=== PATIENT | female | born 2005 | race Caucasian/White ===

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

== ENCOUNTER 2023-03-21 07:54 | Observation (INO) | payer BC, SELFPAY ==
[2023-03-21] VITALS (18 sets, daily range): BP systolic 91–119; BP diastolic 49–79; PULSE 91–128; RESP 16–20; TEMP 36.7–37.8; O2SAT 95–100; BMI 20.9; BMI 21.0
--- NOTE | 2023-03-21 08:05 | US_ITS ---
FINAL REPORT TECHNIQUE: Multiple transverse and longitudinal images CLINICAL HISTORY: Gallbladder RUQ pain-- vomiting FINDINGS: The gallbladder shows no wall thickening, distention or stone disease. No biliary ductal dilatation is appreciated. No fluid collections are seen. Limited portions of the right liver are unremarkable. Limited portions of the right kidney are unremarkable. IMPRESSION: 1. No evidence of cholelithiasis 2. No evidence of biliary obstruction Reviewed, Interpreted and Dictated by Madelyn Isabel MD Transcribed by Cathie Encarnacion Authenticated and [facility]
--- NOTE | 2023-03-21 08:10 | PC.NURSE ---
pt to US via wheelchair
--- NOTE | 2023-03-21 08:10 | PC.NURSE ---
Sarai RT is aware of the US
--- NOTE | 2023-03-21 08:29 | PC.NURSE ---
pt to US via wheelchair
[2023-03-21 08:31] LABS: Basophils % 0.1 % (0.1-2.0); Eosinophils # 0.3 K/mm3 (0.0-0.4); Eosinophils % 1.9 % (0.1-12.0); Hematocrit 44.1 % (37.0-47.0); Hemoglobin 14.3 g/dL (12.2-16.2); Lymphocytes # 0.6 K/mm3 (0.7-4.5); Lymphocytes % 3.8 % (10-50); Mean Corpuscular HGB Conc 32.3 g/dL (31.8-35.4); Mean Corpuscular Volume 86.7 fl (81-99); Mean Platelet Volume 7.4 fl (7.4-10.4); Monocytes # 0.4 K/mm3 (0.1-1.0); Monocytes % 2.5 % (1.7-9.3); Neutrophils # 14.6 K/mm3 (1.8-7.8); Neutrophils % 91.7 % (37.0-80.0); Platelet Count 355 K/mm3 (142-424); Red Blood Count 5.09 M/mm3 (4.20-5.40); White Blood Count 15.9 K/mm3 (4.5-13.0)
[2023-03-21 08:32] LABS: MANUAL DIFFERENTIAL MANUAL DIFFERENTIAL (MANUAL DIFF)
--- NOTE | 2023-03-21 08:34 | HMH.EDGENADL ---
Discharge Plan Disposition Patient Disposition: Home, Self-Care Chief Complaint: Abdominal Pain Prescriptions Prescriptions: New ondansetron 4 mg tablet,disintegrating 4 mg PO Q8H PRN (Reason: Nausea) Qty: 15 0RF No Action meloxicam [Mobic] 7.5 mg tablet 7.5 mg PO DAILY Qty: 30 2RF amoxicillin 500 MG capsule 500 mg PO TID Qty: 30 0RF methylprednisolone 4 MG tablet 4 mg PO DIRECTED Qty: 21 0RF Rx Instructions: Take as directed on package instructions fluticasone propionate 120 SPR/BOT bottle 1 spr NS DAILY Qty: 1 0RF Rx Instructions: each nostril daily cyclobenzaprine 10 MG tablet 5 mg PO DAILY PRN (Reason: Muscle Spasm) 5 Days Qty: 5 0RF Rx Instructions: at bedtime prednisone 5 MG tablets,dose pack 5 mg PO UD DOSE PK 6 Days Qty: 1 0RF Referrals Follow up/Referrals: Jhony Rosa MD [Primary Care Provider] - See instructions Activity Restrictions/Add. Instructions Additional Instructions/Restrictions: Return immediately within 8 hours for worsening pain vomiting or any other concerns. Follow-up with general surgery for evaluation of gallbladder. Instructions Patient Instructions: DI for Acute Abdominal Pain Discharge ED Provider: Goldy Do General Adult HPI General Chief complaint: Abdominal Pain Stated complaint: Upper mid RT abd pain Time Seen by Provider: 03/21/23 08:00 Mode of Arrival: Wheelchair Source of Information: Patient and Parent(s) Limitations: No Limitations Description of Symptoms (Recalled from ER Triage Doc. by RN): pt comes in with mother, c/o right upper abdominal pain. began yesterday after lunch. pt reports vomitting began last night. mother states pt came into her room this am, and was c/o vomtting and abd pain. History of Present Illness HPI narrative: 17-year-old female presents with right upper quadrant pain for 1 day. She says the pain began yesterday at noon after eating canes it was not that severe but then in the morning she began having severe right upper quadrant pain and vomiting. No fever or chills. No diarrhea no radiation of the abdominal pain. No chest pain or shortness of breath. No dysuria hematuria vaginal bleeding or discharge. Pain is constant. Related Data Previous Rx's Medication Instructions Recorded meloxicam 7.5 mg tablet (Mobic) 7.5 mg PO DAILY pain #30 tabs 08/05/20 cyclobenzaprine 10 mg tablet 5 mg PO DAILY PRN Muscle Spasm 5 12/19/20 days #5 tabs prednisone 5 mg tablets in a dose 5 mg PO UD DOSE PK 6 days ##1 12/19/20 pack amoxicillin 500 mg capsule 500 mg PO TID #30 caps 03/26/21 fluticasone propionate 50 1 spr NS DAILY ##1 03/26/21 mcg/actuation nasal spray,suspension methylprednisolone 4 mg tablet 4 mg PO DIRECTED #21 tabs 03/26/21 ondansetron 4 mg disintegrating 4 mg PO Q8H PRN Nausea #15 tabs 03/21/23 tablet Allergies Allergy/AdvReac Type Severity Reaction Status Date / Time No Known Allergies Allergy Verified 03/26/21 15:30 [facility] Disclaimer: The information contained in this section may have been updated after the patient was seen, as this information can be updated by other users. Medical History (Updated 10/09/22 @ 21:27 by James Garcia MD) Anxiety Social History Smoking Status: Never smoker second hand exposure: No alcohol intake: never substance use type: denies use current occupational status: student Travel in the last 8 weeks: None household members: family current occupational exposures/hazards: No caffeine: No ROS Obtained: Yes All systems reviewed & no additional complaints except as documented Constitutional Constitutional: Denies fatigue Eyes Eyes: Denies dry eyes ENT Ears, Nose, Mouth, and Throat: Denies dry mouth Cardiovascular Cardiovascular: Denies diaphoresis and Denies dyspnea Respiratory Respiratory: Denies dyspnea Gastrointestinal Gastrointestingal: Denies coffee ground emesis Genitourin
[2023-03-21 08:38] LABS: Alanine Aminotransferase 17 U/L (12-78); Albumin Level 4.5 g/dl (3.5-5.0); Albumin/Globulin Ratio 1.4 (1.1-1.8); Alkaline Phosphatase 79 U/L (38-126); Anion Gap 16.6 mEq/L (5-15); Aspartate Amino Transferase 23 U/L (14-36); Bilirubin,Total 1.1 mg/dl (0.2-1.3); Blood Urea Nitrogen 9 mg/dl (7-17); Calcium 9.2 mg/dl (8.4-10.2); Carbon Dioxide 26 mmol/L (22.0-30.0); Chloride 99 mmol/L (98-107); Creatinine Clearance Estimated 117 mL/min (50-200); Estimated Glomerular Filt Rate 108 ml/min (>60); GFR (African American) 130 ML/MIN (>60); Globulin 3.2 g/dL (1.3-3.2); Glucose 100 mg/dl (74-100); Lipase 85 U/L (23-300); Potassium 3.6 mmoL/L (3.5-5.1); Sodium 138 mmol/L (136-145); Total Protein,Serum 7.7 g/dl (6.3-8.2)
--- NOTE | 2023-03-21 08:49 | PC.NURSE ---
pt back to room from
--- NOTE | 2023-03-21 08:51 | CT_ITS ---
FINAL REPORT TECHNIQUE: Oral and IV contrast enhanced exam CLINICAL HISTORY: RLQ pain COMPARISON: 11/12/2018 FINDINGS: Abdomen: No acute density is seen within the lung bases. The gallbladder is unremarkable. Solid abdominal organs are unremarkable. No bowel obstruction is present. There is no free air. No fluid collection is seen. There is no adenopathy. Pelvis: The appendix is normal. No bowel wall thickening is present. There is no free fluid. There is a benign cyst in the right ovary measuring 20 mm. Left ovary and uterus are unremarkable. IMPRESSION: No acute findings. Benign right ovarian cyst. Reviewed, Interpreted and Dictated by Madelyn Isabel MD Transcribed by Alyssa Walker Authenticated and [facility]
[2023-03-21 08:55] LABS: Lymphocytes % 13 % (10-50); Monocytes % 2 % (2-9); Neutrophils % 85 % (42-76); Platelet Estimate Normal; RBC Morphology Normal; Total Cells Counted 100
[2023-03-21 09:06] LABS: HCG Qualitative, Serum Negative (Negative)
--- NOTE | 2023-03-21 09:30 | PC.NURSE ---
Rounded on patient; pt lying on ED stretcher watching a show on her phone. Mother at BS. Call light within reach. Pt aware that she will be having a CT scan shortly. no other needs
--- NOTE | 2023-03-21 10:17 | PC.NURSE ---
rounded on pt at this time, pt requested water,checked with ER MD stated to wait until Ct is resulted. Pt notified of needing to wait until CT is resulted pt verbalized understanding. Family at BS, call light in reach.
--- NOTE | 2023-03-21 11:11 | PC.NURSE ---
contacted rad at this time to check on status of ct results, states will send a ct down
--- NOTE | 2023-03-21 11:24 | PC.NURSE ---
NUPUR WELLS updated pt POC
--- NOTE | 2023-03-21 11:32 | PC.NURSE ---
checked on pt at this time, pt reports tolerating ice water okay, pt states no needs at this time. call light in reach at this time
--- NOTE | 2023-03-21 12:30 | PC.NURSE ---
pt assisted to bathroom. pt has been sleeping in bed, attempting to move pt to increase blood pressure.
--- NOTE | 2023-03-21 12:43 | PC.NURSE ---
Follow up to see Dr. Childress on March [address] Do is aware
--- NOTE | 2023-03-21 12:53 | PC.NURSE ---
Dr. Do speaking with Dr. Selby at this time
--- NOTE | 2023-03-21 13:05 | PC.NURSE ---
pts mother come out to nurses station, requesting to speak with nurse. mother states that pt does not want to go home due to nausea and vomiting.
--- NOTE | 2023-03-21 13:09 | US_ITS ---
FINAL REPORT CLINICAL HISTORY: ovarian torsion COMPARISON: None FINDINGS: PELVIC ULTRASOUND Transvaginal pelvic exam: Uterus is unremarkable. The right ovary is mildly enlarged with estimated volume of 17.1 mL, partially related to complex cyst measuring up to 2 cm. Left ovary is unremarkable. Flow demonstrated to bilateral ovaries on Doppler imaging. IMPRESSION: No sonographic evidence of torsion. Mild enlargement right ovary, likely related to complex benign functional cyst. Reviewed, Interpreted and Dictated by Madelyn Isabel MD Transcribed by Alyssa Walker Authenticated and [facility]
--- NOTE | 2023-03-21 13:09 | PC.NURSE ---
waiting international coordinator back from Dr. Rosa
[2023-03-21 13:12] LABS: Microscopic, Urine URINE MICROSCOPIC (MICROSCOPIC)
[2023-03-21 13:14] LABS: Coronavirus 19, PCR Not Detected (NotDetected); Influenza A, PCR Not Detected (NotDetected); Influenza B, PCR Not Detected (NotDetected)
[2023-03-21 13:14] LABS: Appearance,Urine CLEAR (Clear); Bilirubin,Urine Negative (Negative); Blood, Urine Negative (Negative); Color,Urine YELLOW (Yellow); Glucose,Urine (UA) Negative (Negative); Ketones,Urine Negative (Negative); Leukocyte Esterase,Urine Negative (Negative); Nitrate,Urine Negative (Negative); PH,Urine 8.5 (5.0-8.5); Protein,Urine TRACE (Negative)
--- NOTE | 2023-03-21 13:14 | PC.NURSE ---
NUPUR WELLS speaking with Dr. Rosa
--- NOTE | 2023-03-21 13:36 | PC.NURSE ---
call made to care management for bed assignment
[2023-03-21 13:47] LABS: Bacteria,Urine 2+ /lpf; RBC,Urine Occasional #/hpf (0-3)
--- NOTE | 2023-03-21 14:00 | PC.NURSE ---
waiting delinquency prevention officer back from second floor to call report on pt.
--- NOTE | 2023-03-21 14:08 | PC.NURSE ---
bernard called to pedro on second floor
--- NOTE | 2023-03-21 15:26 | P.CONS_ITS ---
History of Present Illness *Admission Date: 03/21/23 *Reason for visit:: Abdominal pain and nausea *History of present illness: This is a 17-year-old female seen in consultation from her primary care provider after evaluation in the emergency department for right-sided abdominal pain and nausea/vomiting. Please see HPI forwarded from emergency department evaluation below. She states that she feels a little bit better right now . Forwarded from emergency department evaluation: General Adult HPI General Chief complaint: Abdominal Pain Stated complaint: Upper mid RT abd pain Time Seen by Provider: 03/21/23 08:00 Mode of Arrival: Wheelchair Source of Information: Patient and Parent(s) Limitations: No Limitations Description of Symptoms (Recalled from ER Triage Doc. by RN): pt comes in with mother, c/o right upper abdominal pain. began yesterday after lunch. pt reports vomitting began last night. mother states pt came into her room this am, and was c/o vomtting and abd pain. History of Present Illness HPI narrative: 17-year-old female presents with right upper quadrant pain for 1 day.? She says the pain began yesterday at noon after eating canes it was not that severe but then in the morning she began having severe right upper quadrant pain and vomiting.? No fever or chills.? No diarrhea no radiation of the abdominal pain.? No chest pain or shortness of breath.? No dysuria hematuria vaginal bleeding or discharge.? Pain is constant. CT of abdomen/pelvis with oral and IV contrast: FINDINGS: Abdomen: No acute density is seen within the lung bases. The gallbladder is unremarkable. Solid abdominal organs are unremarkable.? No bowel obstruction is present. There is no free air. No fluid collection is seen.? There is no adenopathy. Pelvis: ? The appendix is normal.? No bowel wall thickening is present. There is no free fluid.? There is a benign cyst in the right ovary measuring 20 mm.? Left ovary [place] are unremarkable. IMPRESSION: No acute findings.? ? Benign right ovarian cyst. Gallbladder ultrasound: FINDINGS: The gallbladder shows no wall thickening, distention or stone disease.? No biliary ductal dilatation is appreciated.? No fluidcollections are seen.? Limited portions of the right liver are unremarkable.? Limited portions of the right kidney are unremarkable. IMPRESSION: 1.? No evidence of cholelithiasis? 2.? No evidence of biliary obstruction Transvaginal ultrasound: FINDINGS: PELVIC ULTRASOUND? Transvaginal pelvic exam: Uterus is unremarkable.? The right ovary is mildly enlarged with estimated volume of 17.1 mL, partially related to complex cyst measuring up to 2 cm.? Left ovary is unremarkable.? Flow demonstrated to bilateral ovaries on Doppler imaging. IMPRESSION: No sonographic evidence of torsion.? ? Mild enlargement right ovary, likely related to complex benign functional cyst. PFSH PFSH Disclaimer: The information contained in this section may have been updated after the patient was seen, as this information can be updated by other users. Medical History (Updated 03/21/23 @ 15:40 by iSd Selby MD) Anxiety Social History (Updated 03/21/23 @ 14:33 by Inessa Lara RN) Smoking Status: Never smoker second hand exposure: No alcohol i
--- NOTE | 2023-03-21 17:39 | PC.NURSE ---
Pt A&O x4. She is resting in bed. Has c/o discomfort to (R) abdomen. Medicated per jan. MD Rosa rounded at bedside. Boyfriend and mother is in room. Call light within reach.
--- NOTE | 2023-03-21 21:10 | EXP.HP ---
History of Present Illness *Admission Date: 03/21/23 *Reason for visit:: Abd pain and nausea *History of present illness: This is a 17-year-old female seen in consultation from her primary care provider after evaluation in the emergency department for right-sided abdominal pain and nausea/vomiting. Please see HPI forwarded from emergency department evaluation below. She states that she feels a little bit better right now . Forwarded from emergency department evaluation: General Adult HPI General Chief complaint: Abdominal Pain Stated complaint: Upper mid RT abd pain Time Seen by Provider: 03/21/23 08:00 Mode of Arrival: Wheelchair Source of Information: Patient and Parent(s) Limitations: No Limitations Description of Symptoms (Recalled from ER Triage Doc. by RN): pt comes in with mother, c/o right upper abdominal pain. began yesterday after lunch. pt reports vomitting began last night. mother states pt came into her room this am, and was c/o vomtting and abd pain. History of Present Illness HPI narrative: 17-year-old female presents with right upper quadrant pain for 1 day.? She says the pain began yesterday at noon after eating canes it was not that severe but then in the morning she began having severe right upper quadrant pain and vomiting.? No fever or chills.? No diarrhea no radiation of the abdominal pain.? No chest pain or shortness of breath.? No dysuria hematuria vaginal bleeding or discharge.? Pain is constant. CT of abdomen/pelvis with oral and IV contrast: FINDINGS: Abdomen: No acute density is seen within the lung bases. The gallbladder is unremarkable. Solid abdominal organs are unremarkable.? No bowel obstruction is present. There is no free air. No fluid collection is seen.? There is no adenopathy. Pelvis: ? The appendix is normal.? No bowel wall thickening is present. There is no free fluid.? There is a benign cyst in the right ovary measuring 20 mm.? Left ovary [place] are unremarkable. IMPRESSION: No acute findings.? ? Benign right ovarian cyst. Gallbladder ultrasound: FINDINGS: The gallbladder shows no wall thickening, distention or stone disease.? No biliary ductal dilatation is appreciated.? No fluidcollections are seen.? Limited portions of the right liver are unremarkable.? Limited portions of the right kidney are unremarkable. IMPRESSION: 1.? No evidence of cholelithiasis? 2.? No evidence of biliary obstruction Transvaginal ultrasound: FINDINGS: PELVIC ULTRASOUND? Transvaginal pelvic exam: Uterus is unremarkable.? The right ovary is mildly enlarged with estimated volume of 17.1 mL, partially related to complex cyst measuring up to 2 cm.? Left ovary is unremarkable.? Flow demonstrated to bilateral ovaries on Doppler imaging. IMPRESSION: No sonographic evidence of torsion.? ? Mild enlargement right ovary, likely related to complex benign functional cyst. PFSH PFSH Disclaimer: The information contained in this section may have been updated after the patient was seen, as this information can be updated by other users. Medical History (Updated 03/21/23 @ 15:40 by Sid Selby MD) Anxiety Social History (Updated 03/21/23 @ 14:33 by Inessa Lara RN) Smoking Status: Never smoker second hand exposure: No alcohol intake: never substance use type: denies use current occupational status: student Travel in the last 8 weeks: None household members: family current occupational exposures/hazards: No caffeine: No Review of Systems Review of Systems Review of systems:: pertinent systems reviewed and negative unless documented below *Neurologic Neurolog
[2023-03-22 04:00] VITALS: BP 94/55; PULSE 79; RESP 16; TEMP 36.6; O2SAT 98; BMI 21.4
--- NOTE | 2023-03-22 04:10 | PC.NURSE ---
NO ACUTE CHANGES SINCE PREVIOUS ASSESSMENT. PT HAS RESTED WELL. NO C/O PAIN BUT HAS BEEN MEDICATED WITH SCHEDULED TORDOL THIS SHIFT. LUNGS CLEAR. VSS. CALL BOSS WITHIN REACH.
[2023-03-22 06:27] LABS: Basophils % 0.2 % (0.1-2.0); Eosinophils # 0.1 K/mm3 (0.0-0.4); Eosinophils % 0.9 % (0.1-12.0); Hematocrit 38.1 % (37.0-47.0); Hemoglobin 12.9 g/dL (12.2-16.2); Lymphocytes # 1.1 K/mm3 (0.7-4.5); Lymphocytes % 16.3 % (10-50); Mean Corpuscular HGB Conc 33.8 g/dL (31.8-35.4); Mean Corpuscular Hemoglobin 28.9 pg (27.0-31.2); Mean Corpuscular Volume 85.6 fl (81-99); Mean Platelet Volume 7.6 fl (7.4-10.4); Monocytes # 0.4 K/mm3 (0.1-1.0); Monocytes % 6.3 % (1.7-9.3); Neutrophils % 76.2 % (37.0-80.0); Platelet Count 292 K/mm3 (142-424); Red Blood Count 4.46 M/mm3 (4.20-5.40); White Blood Count 6.6 K/mm3 (4.5-13.0)
[2023-03-22 06:36] LABS: Alanine Aminotransferase 14 U/L (12-78); Albumin Level 3.4 g/dl (3.5-5.0); Albumin/Globulin Ratio 1.4 (1.1-1.8); Alkaline Phosphatase 56 U/L (38-126); Amylase 52 U/L (30-110); Anion Gap 15.3 mEq/L (5-15); Aspartate Amino Transferase 19 U/L (14-36); Bilirubin,Total 0.7 mg/dl (0.2-1.3); Blood Urea Nitrogen 6 mg/dl (7-17); Calcium 8.5 mg/dl (8.4-10.2); Carbon Dioxide 26 mmol/L (22.0-30.0); Chloride 99 mmol/L (98-107); Chol/HDL Ratio 2.8 (1-3.5); Cholesterol 86 mg/dl (140-200); Creatinine Clearance Estimated 120 mL/min (50-200); Estimated Glomerular Filt Rate 108 ml/min (>60); GFR (African American) 130 ML/MIN (>60); Globulin 2.5 g/dL (1.3-3.2); Glucose 79 mg/dl (74-100); HDL Cholesterol 31 mg/dl (40-60); Potassium 3.3 mmoL/L (3.5-5.1); Sodium 137 mmol/L (136-145); Total Protein,Serum 5.9 g/dl (6.3-8.2); Triglycerides 46 mg/dl (30-150); VLDL Cholesterol 9 mg/dL (0-40)
[2023-03-22 06:47] LABS: Direct LDL Cholesterol 41.57 mg/dL (100-129)
--- NOTE | 2023-03-22 06:50 | EXP.SURG.PN ---
Subjective Patient reports: feels better Narrative: She states that she feels okay right now . She is hopeful that she will be discharged this morning. Exam Data for Last 24 hours Vital signs and Labs for Last 24 Hours: Temp Pulse Resp BP Pulse Ox 97.9 F 79 16 94/55 L 98 03/22/23 04:00 03/22/23 04:00 03/22/23 04:00 03/22/23 04:00 03/22/23 04:00 Laboratory Results - last 24 hr 03/21/23 08:00: Urine Color Yellow, Urine Appearance Clear, Urine pH 8.5, Ur Specific [place] 1.020, Urine Protein Trace, Urine Glucose (UA) Negative, Urine Ketones Negative, Urine Blood Negative, Urine Nitrate Negative, Urine Bilirubin Negative, Urine Urobilinogen 1.0, Ur Leukocyte Esterase Negative, Urine RBC Occasional, Urine WBC 5-10, Ur Squamous Epith Cells 5-10, Urine Bacteria 2+ 03/21/23 08:15: WBC 15.9 H, RBC 5.09, Hgb 14.3, Hct 44.1, MCV 86.7, MCH 28.0, MCHC 32.3, RDW 13.0, Plt Count 355, MPV 7.4, Neut % (Auto) 91.7 H, Lymph % (Auto) 3.8 L, Levy % (Auto) 2.5, Eos % (Auto) 1.9, Baso % (Auto) 0.1, Neut # (Auto) 14.6 H, Lymph # (Auto) 0.6 L, Levy # (Auto) 0.4, Eos # (Auto) 0.3, Baso # (Auto) 0.0, Total Counted 100, Neutrophils % (Manual) 85 H, Lymphocytes % (Manual) 13, Monocytes % (Manual) 2, Platelet Estimate Normal, RBC Morphology Normal 03/21/23 08:15: Sodium 138, Potassium 3.6, Chloride 99, Carbon Dioxide 26, Anion Gap 16.6 H, BUN 9, Creatinine 0.70, Estimated Creat Clear 117, Estimated GFR 108, Est GFR ( Amer) 130, Glucose 100, Calcium 9.2, Total Bilirubin 1.1, AST 23, ALT 17, Alkaline Phosphatase 79, Total Protein 7.7, Albumin 4.5, Globulin 3.2, Albumin/Globulin Ratio 1.4, Lipase 85 03/21/23 08:15: Serum HCG, Qual Negative 03/21/23 13:10: SARS-CoV-2 (PCR) Not detected, Influenza A Untype (PCR) Not detected, Influenza Type B (PCR) Not detected 03/22/23 05:52: WBC 6.6 D, RBC 4.46, Hgb 12.9, Hct 38.1, MCV 85.6, MCH 28.9, MCHC 33.8, RDW 13.0, Plt Count 292, MPV 7.6, Neut % (Auto) 76.2, Lymph % (Auto) 16.3, Levy % (Auto) 6.3, Eos % (Auto) 0.9, Baso % (Auto) 0.2, Neut # (Auto) 5.0, Lymph # (Auto) 1.1, Levy # (Auto) 0.4, Eos # (Auto) 0.1, Baso # (Auto) 0.0 03/22/23 05:52: Sodium 137, Potassium 3.3 L, Chloride 99, Carbon Dioxide 26, Anion Gap 15.3 H, BUN 6 L D, Creatinine 0.70, Estimated Creat Clear 120, Estimated GFR 108, Est GFR ( Amer) 130, Glucose 79 D, Calcium 8.5, Total Bilirubin 0.7, AST 19, ALT 14, Alkaline Phosphatase 56, Total Protein 5.9 L, Albumin 3.4 L D, Globulin 2.5, Albumin/Globulin Ratio 1.4, Triglycerides 46, Cholesterol 86 L, LDL Cholesterol Direct 41.57 L, VLDL Cholesterol 9, HDL Cholesterol 31 L, Cholesterol/HDL Ratio 2.8, Amylase 52 I & O for Last 24 hours: Intake & Output 03/19/23 03/20/23 03/21/23 03/22/23 11:59 11:59 11:59 11:59 Intake Total 651 / 651 Output Total 300 / 300 Balance 351 / 351 Weight 126 lb 129 lb 2 oz Constitutional Constitutional: no acute distress *Routine Respiratory Exam Respiratory: Absent respiratory distress *Routine Cardiovascular Exam Cardiovascular: Present RRR *Routine Abdominal Exam Comments: Deferred to allow patient to rest. Repeat exam later this AM. Progress Note: A&P Assessment and plan (1) Right lateral abdominal pain: Status: Acute Assessment and plan: Currently improved per patient report. If repeat abdominal exam later this AM improved...she will likely be stable for discharge home with close outpatient follow-up. (2) Nausea and vomiting: Status: Acute (3) Right ovarian cyst: Status: Acute (4) Leukocytosis: Status: Resolved
[2023-03-22 07:10] LABS: Lipase 52 U/L (23-300)
[2023-03-22 08:00] VITALS: BP 99/67; PULSE 77; RESP 18; TEMP 36.9; O2SAT 100
--- NOTE | 2023-03-22 08:00 | EXP.DC.SUM ---
General Admission date:: 03/21/23 Discharge date: 03/22/23 HPI HPI HPI: This is a 17-year-old female seen in consultation from her primary care provider after evaluation in the emergency department for right-sided abdominal pain and nausea/vomiting. Please see HPI forwarded from emergency department evaluation below. She states that she feels a little bit better right now . Forwarded from emergency department evaluation: General Adult HPI General Chief complaint: Abdominal Pain Stated complaint: Upper mid RT abd pain Time Seen by Provider: 03/21/23 08:00 Mode of Arrival: Wheelchair Source of Information: Patient and Parent(s) Limitations: No Limitations Description of Symptoms (Recalled from ER Triage Doc. by RN): pt comes in with mother, c/o right upper abdominal pain. began yesterday after lunch. pt reports vomitting began last night. mother states pt came into her room this am, and was c/o vomtting and abd pain. History of Present Illness HPI narrative: 17-year-old female presents with right upper quadrant pain for 1 day.? She says the pain began yesterday at noon after eating canes it was not that severe but then in the morning she began having severe right upper quadrant pain and vomiting.? No fever or chills.? No diarrhea no radiation of the abdominal pain.? No chest pain or shortness of breath.? No dysuria hematuria vaginal bleeding or discharge.? Pain is constant. CT of abdomen/pelvis with oral and IV contrast: FINDINGS: Abdomen: No acute density is seen within the lung bases. The gallbladder is unremarkable. Solid abdominal organs are unremarkable.? No bowel obstruction is present. There is no free air. No fluid collection is seen.? There is no adenopathy. Pelvis: ? The appendix is normal.? No bowel wall thickening is present. There is no free fluid.? There is a benign cyst in the right ovary measuring 20 mm.? Left ovary [place] are unremarkable. IMPRESSION: No acute findings.? ? Benign right ovarian cyst. Gallbladder ultrasound: FINDINGS: The gallbladder shows no wall thickening, distention or stone disease.? No biliary ductal dilatation is appreciated.? No fluidcollections are seen.? Limited portions of the right liver are unremarkable.? Limited portions of the right kidney are unremarkable. IMPRESSION: 1.? No evidence of cholelithiasis? 2.? No evidence of biliary obstruction Transvaginal ultrasound: FINDINGS: PELVIC ULTRASOUND? Transvaginal pelvic exam: Uterus is unremarkable.? The right ovary is mildly enlarged with estimated volume of 17.1 mL, partially related to complex cyst measuring up to 2 cm.? Left ovary is unremarkable.? Flow demonstrated to bilateral ovaries on Doppler imaging. IMPRESSION: No sonographic evidence of torsion.? ? Mild enlargement right ovary, likely related to complex benign functional cyst. Hospital Course Hospital Course Hospital Course: Patient did well after being admitted. Normal bowel movements, no vomiting. This morning had a small amount of hypokalemia, able to tolerate p.o. replacement and clear liquids. Plan will be to discharge patient with clear liquids advance to as tolerated diet with avoiding milk. Differential diagnosis includes viral gastroenteritis, possibly pain from her cyst but I believe we have effectively ruled out biliary colic. Plan will be to come back and see us in the office in the next 5 to 7 days. Advance diet slowly. Exam Data for Last 24 hours Vital signs and Labs for Last 24 Hours: Temp Pulse Resp BP Pulse Ox 97.9 F 79 16 94/55 L 98 03/22/23 04:00 03/22/23 04:00 03/22/23 04:00 03/22/23 04:00 03/22/23 04:0
--- NOTE | 2023-03-23 13:38 | CARE MANAGER ---
Contacted patient's mother. She states she is doing well and denies any questions or concerns. She is aware of follow up appointments. JILL Reynaga
== END 2023-03-22 09:49 | disposition home or self-care (01) ==
LOC: ER 13:03 → 2ND 13:48
PROVIDERS: Surgery; Admitting Provider Internal Medicine Adolescent Medicine; Emergency Provider Emergency Medicine; PCP Internal Medicine Adolescent Medicine; Visit Provider Internal Medicine Adolescent Medicine
DX: N83.201 Unspecified ovarian cyst, right side (principal); R11.2 Nausea with vomiting, unspecified; R10.30 Lower abdominal pain, unspecified
CPT/HCPCS: 36415; 74177; 76705; 76830; 80053; 80061; 81001; 82150; 83690; 84703; 85007; 85025; 87086; 99285; C9803; G0378; J2405; Q9967; U0003; U0005

== ENCOUNTER → 2023-04-04 10:09 | Outpatient (CLI) | payer BC, SELFPAY ==
--- NOTE | 2023-04-04 10:09 | NM_ITS ---
FINAL REPORT CLINICAL HISTORY: Abdominal Pain 10:30 am 8.22[facility]ci tc choletec 1.1 mcg of cck injected into lt ant neg u/s for stones 03/21/23 pain with cck FINDINGS: Sequential anterior projection images of the abdomen were obtained after the intravenous injection of 8.22 mCi technetium 99m Choletec. There is normal uptake of radiotracer by the liver. The bile ducts are visualized by 5 minutes. Gallbladder activity is seen by 5 minutes. Bowel activity is noted by 5 minutes. After 1 hour, 1.1 ?g of CCK was injected intravenously for calculation of gallbladder ejection fraction. The gallbladder ejection fraction is 28 %, which is slightly lower than normal. IMPRESSION: Gallbladder ejection fraction is 28% which is slightly lower than normal. This is a nonspecific finding but can be seen with chronic cholecystitis. Reviewed, Interpreted and Dictated by Angelito Rice III, MD Transcribed by Cathie Encarnacion Authenticated and [facility]
== END ==
PROVIDERS: PCP Internal Medicine Adolescent Medicine; Visit Provider Surgery
DX: R10.9 Unspecified abdominal pain (principal)
CPT/HCPCS: 78227; A9537; J2805

== ENCOUNTER 2023-05-08 22:57 | Emergency (ER) | payer BC, SELFPAY ==
[2023-05-08 22:58] VITALS: BP 149/88; PULSE 90; RESP 16; TEMP 37; O2SAT 99; BMI 20.3
[2023-05-08 23:02] VITALS: BP 149/88; PULSE 80; RESP 20; O2SAT 100
--- NOTE | 2023-05-08 23:09 | CT_ITS ---
PROCEDURE INFORMATION: Exam: CT Abdomen And Pelvis With Contrast Exam date and time: 05/08/2023 11:48 PM Age: 17 years old Clinical indication: Abdominal pain; Patient HX: C/O lower abd pain after eating tonight; Additional info: Rlq pain. Scheduled for cholecystectomy May 24, states HX of right sided ovarian cyst. TECHNIQUE: Imaging protocol: Computed tomography of the abdomen and pelvis with contrast. Radiation optimization: All CT scans at this facility use at least one of these dose optimization techniques: automated exposure control; mA and/or kV adjustment per patient size (includes targeted exams where dose is matched to clinical indication); or iterative reconstruction. Contrast material: ISOVUE; Contrast volume: 75 ml; Contrast route: IV; REPORTING DATA: Count of CT and Cardiac NM exams in prior 12 months: This patient has received 3 known CTs and 0 known cardiac nuclear medicine studies in the 12 months prior to the current study. COMPARISON: CT ABDOMEN PELVIS W CON 03/21/2023 9:53 AM FINDINGS: Lungs: RLL calcified granuloma. Liver: Unremarkable. Gallbladder and bile ducts: No calcified stones. No ductal dilation. Pancreas: Unremarkable. No ductal dilation. Spleen: Heterogeneity of parenchyma, likely related to phase of enhancement. Few calcifications. Adrenal glands: No mass. Kidneys and ureters: Unremarkable. No significant hydronephrosis. Stomach and bowel: No definite mural thickening. No obstruction. Appendix: Normal caliber. No inflammation. Intraperitoneal space: Trace free fluid within pelvis. No free air. Vasculature: Unremarkable. No aneurysm. Lymph nodes: No pathologically enlarged lymph nodes. Urinary bladder: Unremarkable. Reproductive: Unremarkable as visualized. Bones/joints: No acute fracture. Soft tissues: Unremarkable. IMPRESSION: No definite acute intraabdominal abnormality.
[2023-05-08 23:16] LABS: Microscopic, Urine URINE MICROSCOPIC (MICROSCOPIC)
[2023-05-08 23:19] LABS: Basophils % 0.5 % (0.1-2.0); Eosinophils # 0.3 K/mm3 (0.0-0.4); Eosinophils % 3.5 % (0.1-12.0); Hematocrit 42.1 % (37.0-47.0); Hemoglobin 13.7 g/dL (12.2-16.2); Lymphocytes # 3.6 K/mm3 (0.7-4.5); Lymphocytes % 40.8 % (10-50); Mean Corpuscular HGB Conc 32.4 g/dL (31.8-35.4); Mean Corpuscular Hemoglobin 28.1 pg (27.0-31.2); Mean Corpuscular Volume 86.8 fl (81-99); Mean Platelet Volume 7.4 fl (7.4-10.4); Monocytes # 0.5 K/mm3 (0.1-1.0); Monocytes % 5.7 % (1.7-9.3); Neutrophils # 4.3 K/mm3 (1.8-7.8); Neutrophils % 49.6 % (37.0-80.0); Platelet Count 328 K/mm3 (142-424); Red Blood Count 4.85 M/mm3 (4.20-5.40); Red Cell Distribution Width 13.4 % (11.5-17.5); White Blood Count 8.7 K/mm3 (4.5-13.0)
[2023-05-08 23:20] LABS: Chloride 105 mmol/L (98-107); Potassium 3.8 mmoL/L (3.5-5.1); Sodium 141 mmol/L (136-145)
[2023-05-08 23:23] LABS: Alanine Aminotransferase 19 U/L (12-78); Albumin Level 4.7 g/dl (3.5-5.0); Albumin/Globulin Ratio 1.5 (1.1-1.8); Alkaline Phosphatase 45 U/L (38-126); Amylase 73 U/L (30-110); Anion Gap 14.8 mEq/L (5-15); Aspartate Amino Transferase 24 U/L (14-36); Bilirubin,Total 0.7 mg/dl (0.2-1.3); Blood Urea Nitrogen 12 mg/dl (7-17); Carbon Dioxide 25 mmol/L (22.0-30.0); Creatinine Clearance Estimated 117 mL/min (50-200); Estimated Glomerular Filt Rate 108 ml/min (>60); GFR (African American) 130 ML/MIN (>60); Globulin 3.1 g/dL (1.3-3.2); Glucose 87 mg/dl (74-100); Lipase 100 U/L (23-300); Total Protein,Serum 7.8 g/dl (6.3-8.2)
[2023-05-08 23:26] LABS: Appearance,Urine CLEAR (Clear); Bilirubin,Urine Negative (Negative); Blood, Urine Negative (Negative); Color,Urine YELLOW (Yellow); Glucose,Urine (UA) Negative (Negative); Ketones,Urine Negative (Negative); Leukocyte Esterase,Urine 1+ (Negative); Nitrate,Urine Negative (Negative); Protein,Urine Negative (Negative); Urobilinogen,Urine 0.2 EU/dl (0.2)
[2023-05-08 23:27] LABS: Urine Pregnancy, HCG Qual. Negative (Negative)
--- NOTE | 2023-05-08 23:42 | HMH.EDABDPAI ---
Discharge Plan Disposition Patient Disposition: Home, Self-Care Prescriptions Prescriptions: No Action medroxyprogesterone [Depo-Provera] 150 mg/mL suspension 150 mg IM [id number] Qty: 1 3RF Referrals Follow up/Referrals: Jhony Rosa MD [Primary Care Provider] - See instructions Sid Selby MD [Staff Physician] - See instructions Clinical Impressions Clinical Impression: Abdominal pain Stand Alone Forms Stand Alone Forms: Work/School Release Instructions Patient Instructions: DI for Acute Abdominal Pain Discharge ED Provider: Radha (ED)James Abdominal Pain HPI General Chief Complaint: Abdominal Pain Stated Complaint: abd pain,vomiting Time Seen by Provider: 05/08/23 23:00 Mode of Arrival: Wheelchair Source of Information: Patient, Parent(s) and Medical Record Limitations: No Limitations Description of Symptoms (Recalled from ER Triage Doc. by RN): pt c/o RLQ pain with vomitting, pt has been diagnosed with ovarian cyst in rt side and it schedule for gallbladder surgery on 05/24. History of Present Illness HPI narrative: pt with abd pain with vomiting with known gb dis complaint: abdominal pain Onset (ago): hour(s) Consistency: intermittent Location: RLQ Severity: moderate Quality: dull Associated symptoms: denies other symptoms Related Data Previous Rx's Medication Instructions Recorded medroxyprogesterone 150 mg/mL 150 mg IM [id number] #1 mL 04/30/23 intramuscular suspension (Depo-Provera) Allergies Allergy/AdvReac Type Severity Reaction Status Date / Time No Known Allergies Allergy Verified 04/30/23 16:15 [facility] Disclaimer: The information contained in this section may have been updated after the patient was seen, as this information can be updated by other users. Medical History Anxiety Irregular periods/menstrual cycles Social History Smoking Status: Never smoker second hand exposure: No alcohol intake: never substance use type: denies use current occupational status: student Travel in the last 8 weeks: None household members: family current occupational exposures/hazards: No caffeine: No ROS Obtained: Yes All systems reviewed & no additional complaints except as documented Physical Exam General General appearance: alert Head Head exam: normocephalic Eye Eye exam: Present PERRL and EOMI ENT ENT exam: Present mucous membranes moist Neck Neck exam: Present trachea midline Respiratory Respiratory exam: Absent respiratory distress Cardiovascular Cardiovascular exam: Present regular rate Abdominal Exam Abdominal exam: Present soft and tenderness; Absent guarding, rebound or rigidity Abdominal tenderness: Present RLQ and moderate Extremities Exam Extremities exam: Present full ROM Neurological Exam Neurological exam: Present alert and CN II-XII intact; Absent motor sensory deficit Skin Skin exam: Absent rash Medical Decision Making Medical Records Medical records reviewed: Yes I reviewed the patient's medical records. [facility] Inquiry Pt receiving controlled substance: No Vital Signs: 05/08/23 22:58 05/08/23 23:02 05/09/23 00:00 Temperature 98.6 F Temperature Source Oral Pulse Rate 80 87 Pulse Rate [Right] 90 Respiratory Rate 16 20 18 Blood Pressure 149/88 H 112/65 Blood Pressure [Right Arm] 149/88 H Blood Pressure Mean 106 80 Blood Pressure Mean [Right Arm] 108 02 Sat by Pulse Oximetry 99 100 99 05/09/23 00:30 05/09/23 01:04 Temperature 98.6 F Temperature Source Oral Pulse Rate 83 81 Pulse Rate [Right] Respiratory Rate 20 18 Blood Pressure 105/64 L 114/75 Blood Pressure [Right Arm] Blood Pressure Mean 77 Blood Pressure Mean [Right Arm] 02 Sat by Pulse Oximetry 98 Lab Data Lab results reviewed: Yes I reviewed the patient's lab results. Lab Results 05/08/23 23:01: Ur
[2023-05-09] VITALS: BP 112/65; PULSE 87; RESP 18; O2SAT 99
[2023-05-09 00:05] LABS: Bacteria,Urine Trace /lpf
[2023-05-09 00:30] VITALS: BP 105/64; PULSE 83; RESP 20; O2SAT 98
--- NOTE | 2023-05-09 00:54 | PC.NURSE ---
Dr. Garcia at bedside reviewing results
[2023-05-09 01:04] VITALS: BP 114/75; PULSE 81; RESP 18; TEMP 37; O2SAT 98
== END 2023-05-09 01:10 | disposition home or self-care (01) ==
PROVIDERS: Emergency Provider Emergency Medicine; PCP Internal Medicine Adolescent Medicine
DX: R10.31 Right lower quadrant pain (principal); R11.10 Vomiting, unspecified; F41.9 Anxiety disorder, unspecified
CPT/HCPCS: 74177; 80053; 81001; 81025; 82150; 83690; 85025; 87086; 96361; 96374; 96375; 99284; 99285; J0131; J2405; Q9967

== ENCOUNTER → 2023-05-23 09:28 | Outpatient (CLI) | payer BC, SELFPAY ==
[2023-05-23 09:52] LABS: Basophils % 0.3 % (0.1-2.0); Eosinophils # 0.1 K/mm3 (0.0-0.4); Eosinophils % 2.4 % (0.1-12.0); Hemoglobin 14.4 g/dL (12.2-16.2); Lymphocytes % 36.1 % (10-50); Mean Corpuscular HGB Conc 32.6 g/dL (31.8-35.4); Mean Corpuscular Hemoglobin 27.6 pg (27.0-31.2); Mean Corpuscular Volume 84.5 fl (81-99); Mean Platelet Volume 7.1 fl (7.4-10.4); Monocytes # 0.3 K/mm3 (0.1-1.0); Monocytes % 4.8 % (1.7-9.3); Neutrophils # 3.1 K/mm3 (1.8-7.8); Neutrophils % 56.3 % (37.0-80.0); Platelet Count 372 K/mm3 (142-424); Red Blood Count 5.21 M/mm3 (4.20-5.40); White Blood Count 5.6 K/mm3 (4.5-13.0)
[2023-05-23 09:58] LABS: Urine Pregnancy, HCG Qual. Negative (Negative)
[2023-05-23 10:08] LABS: Alanine Aminotransferase 18 U/L (12-78); Albumin Level 4.9 g/dl (3.5-5.0); Albumin/Globulin Ratio 1.6 (1.1-1.8); Alkaline Phosphatase 56 U/L (38-126); Anion Gap 13.3 mEq/L (5-15); Aspartate Amino Transferase 23 U/L (14-36); Bilirubin,Total 1.1 mg/dl (0.2-1.3); Blood Urea Nitrogen 9 mg/dl (7-17); Calcium 9.9 mg/dl (8.4-10.2); Carbon Dioxide 26 mmol/L (22.0-30.0); Chloride 107 mmol/L (98-107); Estimated Glomerular Filt Rate 92 ml/min (>60); GFR (African American) 112 ML/MIN (>60); Globulin 3.1 g/dL (1.3-3.2); Glucose 108 mg/dl (74-100); Potassium 4.3 mmoL/L (3.5-5.1); Sodium 142 mmol/L (136-145)
[2023-05-23 10:09] LABS: Anion Gap 12.3 mEq/L (5-15); Blood Urea Nitrogen 9 mg/dl (7-17); Calcium 9.8 mg/dl (8.4-10.2); Carbon Dioxide 25 mmol/L (22.0-30.0); Chloride 107 mmol/L (98-107); Estimated Glomerular Filt Rate 92 ml/min (>60); GFR (African American) 112 ML/MIN (>60); Glucose 108 mg/dl (74-100); Potassium 4.3 mmoL/L (3.5-5.1); Sodium 140 mmol/L (136-145)
== END ==
PROVIDERS: PCP Internal Medicine Adolescent Medicine; Visit Provider Surgery
DX: Z01.812 Encounter for preprocedural laboratory examination (principal); R10.11 Right upper quadrant pain
CPT/HCPCS: 36415; 80048; 80053; 81025; 85025

== ENCOUNTER 2023-05-24 06:07 | Day surgery (SDC) | payer BC, SELFPAY ==
[2023-05-22 16:44] VITALS: BMI 20.7
[2023-05-24] VITALS (11 sets, daily range): BP systolic 109–121; BP diastolic 62–79; PULSE 61–96; RESP 15–20; TEMP 36.3–43; O2SAT 97–100
[2023-05-24 07:33] LABS: HCG Qualitative, Serum Negative (Negative)
--- NOTE | 2023-05-24 07:36 | P.PN_ITS ---
[facility] Disclaimer: The information contained in this section may have been updated after the patient was seen, as this information can be updated by other users. Medical History Anxiety Irregular periods/menstrual cycles No significant past medical history Surgical History No significant past surgical history Social History (Updated 05/24/23 @ 06:49 by Jessie Barreto RN) Smoking Status: Never smoker second hand exposure: No alcohol intake: never substance use type: denies use current occupational status: student Travel in the last 8 weeks: None household members: family housing: house lives independently: No marital status: single education level: high school current occupational exposures/hazards: No caffeine: No do you feel safe at home: Yes victim of physical abuse: No victim of emotional abuse: No victim of sexual abuse: No would you like helpful sources: No [facility] Anesthesia Checklist Patient Identification Patient Identification: Arm Band Structural Data Admitted From: Home Planned Operative Procedure/s: Laparoscopic Cholecystectomy Consent for Planned Operative Procedure(s) Verified: Yes Verified Documents: Surgical Consent and History and Physical NPO Status Verified Time NPO: 00:00 Additional verifications Anesthesia Reactions: No Hx Blood Transfusions: No Blood Transfusion Reaction: No Airway Assessment C-Spine Mobility Assessed: Yes TMJ Mobility Assessed: Yes Dentition: Good Dentition (Braces) Neurological Assessment Level of Consciousness: Awake and Alert Anesthesia Plan Anesthesia Risk discussed: Yes Anesthesia Plan: Verified ASA Class: I Anesthesia Type: General
--- NOTE | 2023-05-24 08:59 | P.OP_ITS ---
Date of procedure: 05/24/23 Pre-op Diagnosis:: Biliary dyskinesia Post-op Diagnosis:: Biliary dyskinesia Chronic cholecystitis Procedure performed:: Laparoscopic cholecystectomy Surgeon:: Sid Selby MD INSURANCE DEFENSE ATTORNEY:: Rodrigo Davila Anesthesia: GETA Estimated blood loss (mL): 10 Operative findings:: Pericholecystic fat stranding Infundibular thickening Operative note:: After informed consent was obtained, the patient was taken to the operating room and placed in the supine position. General anesthesia was induced and the abdomen was prepped and draped in a sterile fashion. After infiltration with local anesthetic an infraumbilical incision was made. A Veress needle was placed in position. The abdomen was insufflated. A 5 mm optical trocar was placed in position. Under direct visualization, a 12 mm trocar was placed in the subxiphoid position and 2 additional 5 mm trocars were placed in the right upper quadrant. The gallbladder was elevated up and over the liver margin. The tissue around the cystic duct was carefully dissected. 3 clips were placed proximally and the duct was transected with harmonic amadeo. Harmonic amadeo were then utilized to dissect the gallbladder away from the liver margin with careful attention to the control of the cystic artery. The gallbladder was placed in a retrieval bag and removed through the subxiphoid trocar site. The right upper quadrant was thoroughly irrigated. No active bleeding or bile leak was noted. Fascia at the subxiphoid trocar site was reapproximated utilizing the NeoClose device. The remaining trocars were removed. All wounds were irrigated and skin was closed with 4-0 Monocryl in a subcuticular fashion. Steri-Strips were applied. The patient's anesthetic agents were reversed and extubation was completed prior to transfer to recovery in stable condition. Condition: stable Disposition: PACU Specimens:: Gallbladder and contents Complications:: No immediate
--- NOTE | 2023-05-24 09:06 | P.PNANES_ITS ---
[facility] Anesthesia Record Part I Anesthesia Record I Intake, IV Amount: 950 Estimated blood loss (mL): 15 Urine output (mL): 0 Blood Pressure: 112/62 SaO2: 97 Pulse Rate: 75 Respiratory Rate: 20 Temperature: 97.3 F Patient is:: Drowsy and Oral/Nasal airway Stable to PACU at:: 09:07
[2023-05-25 14:32] VITALS: BP 120/70; PULSE 96; TEMP 36.6
--- NOTE | 2023-05-25 14:32 | P.PNANES_ITS ---
[facility] Anesthesia Record Part II Anesthesia Record Part II Discharge Time: 09:29 Destination: Surgical Day Care (OP Surgery) PACU nurse assessment reviewed?: Yes Patient Condition:: Good Anesthesia Complications:: None Swallowing reflex intact?: Yes Cyanosis?: No Blood Pressure: 120/70 Pulse Rate: 96 Temperature: 97.8 F Mental Status: Alert & Oriented Pain level:: 3 Nausea and/or vomitting:: None Intake, IV Amount: 0
== END 2023-05-24 10:15 | disposition home or self-care (01) ==
PROVIDERS: PCP Internal Medicine Adolescent Medicine; Visit Provider Surgery
PROC: 0FT44ZZ Resection of Gallbladder, Percutaneous Endoscopic Approach (ICD-10-PCS; CPT 47562; principal; 2023-05-24 08:00)
DX: K81.1 Chronic cholecystitis (principal)
CPT/HCPCS: 47562; 36415; 84703; 96374; J2405

== ENCOUNTER 2023-10-09 09:50 | Outpatient (CLI) | payer BC, SELFPAY ==
[2023-10-09 10:30] VITALS: BP 124/77; PULSE 76; RESP 18; TEMP 36.6; O2SAT 100
== END 2023-10-09 10:30 | disposition home or self-care (01) ==
LOC: INF 09:52
PROVIDERS: PCP Internal Medicine Adolescent Medicine; Visit Provider Nurse Practitioner Family
DX: G43.911 Migraine, unspecified, intractable, with status migrainosus (principal)
CPT/HCPCS: 96372

== ENCOUNTER 2023-10-09 21:27 | Emergency (ER) | payer BC, SELFPAY ==
[2023-10-09 21:28] VITALS: BP 124/82; PULSE 114; RESP 18; TEMP 36.7; O2SAT 99; BMI 20.9
[2023-10-09 21:34] VITALS: BP 124/82; PULSE 84; RESP 18; O2SAT 99
--- NOTE | 2023-10-09 21:41 | HMH.EDGENADL ---
Discharge Plan Disposition Patient Disposition: Home, Self-Care Prescriptions Prescriptions: No Action medroxyprogesterone [Depo-Provera] 150 mg/mL suspension 150 mg IM [id number] Referrals Follow up/Referrals: Mai Russell APRN [Primary Care Provider] - See instructions Activity Restrictions/Add. Instructions Additional Instructions/Restrictions: Please follow-up with your primary care provider. Please return to the emergency department if you develop any new or worsening symptoms or become concerned for your health. Clinical Impressions Clinical Impression: Migraine Qualifiers: Migraine type: other Status migrainosus presence: with status migrainosus Intractability: not intractable Qualified Code(s): G43.801 - Other migraine, not intractable, with status migrainosus Discharge ED Provider: Bereket Salcedo Adult HPI General Chief complaint: Headache Stated complaint: migrane, loseing vision, face is tingling Time Seen by Provider: 10/09/23 21:35 History of Present Illness HPI narrative: 18-year-old female presents with migraine headache. She reports that she has a history of migraine. She has had a headache for the last couple of days and it has worsened and not improved. She reports some vision changes and left facial tingling. She does not usually have the symptoms associated with her headache. She denies any other current symptoms. She reports any history of migraines. Related Data Home Medications Medication Instructions Recorded Confirmed medroxyprogesterone 150 mg/mL 150 mg IM [id number] Control 05/22/23 05/30/23 intramuscular suspension (Depo-Provera) Allergies Allergy/AdvReac Type Severity Reaction Status Date / Time No Known Allergies Allergy Verified 05/30/23 13:19 [facility] Disclaimer: The information contained in this section may have been updated after the patient was seen, as this information can be updated by other users. Medical History (Updated 10/09/23 @ 22:48 by Bereket Salcedo MD) Anxiety Irregular periods/menstrual cycles No significant past medical history Surgical History History of laparoscopic cholecystectomy Social History Smoking Status: Never smoker second hand exposure: No alcohol intake: never substance use type: denies use current occupational status: student Travel in the last 8 weeks: None household members: family housing: house lives independently: No marital status: single education level: high school current occupational exposures/hazards: No caffeine: No do you feel safe at home: Yes victim of physical abuse: No victim of emotional abuse: No victim of sexual abuse: No would you like helpful sources: No ROS Obtained: Yes All systems reviewed & no additional complaints except as documented Physical Exam General General appearance: alert Head Head exam: atraumatic and normocephalic Eye Eye exam: Present normal appearance, PERRL and EOMI ENT ENT exam: Present normal oropharynx and normal external ear exam Neck Neck exam: Present normal inspection and full ROM Chest Chest inspection: Present normal inspection and symmetric chest wall rise; Absent tenderness Respiratory Respiratory exam: Present normal lung sounds bilaterally; Absent respiratory distress Cardiovascular Cardiovascular exam: Present regular rate and normal rhythm Abdominal Exam Abdominal exam: Present soft; Absent distention, tenderness or guarding Extremities Exam Extremities exam: Present normal inspection; Absent edema or joint swelling Back Exam Back exam: Present normal inspection; Absent tenderness Neurological Exam Neurological exam: Present alert and oriented X3; Absent motor sensory deficit Psychiatric Psychiatric exam: Present normal affect and normal mood Skin Skin exam: Present warm, dry
[2023-10-09 22:45] VITALS: BP 104/68; PULSE 63; RESP 17; O2SAT 99
[2023-10-09 22:57] VITALS: BP 102/66; PULSE 66; RESP 19; TEMP 36.8; O2SAT 100
== END 2023-10-09 23:02 | disposition home or self-care (01) ==
PROVIDERS: Emergency Provider Emergency Medicine; PCP Nurse Practitioner Family
DX: G43.801 Other migraine, not intractable, with status migrainosus (principal)
CPT/HCPCS: 96361; 96374; 96375; 99284

== ENCOUNTER 2023-11-22 12:38 | Emergency (ER) | payer BC, SELFPAY ==
[2023-11-22 12:40] VITALS: BP 127/85; PULSE 89; RESP 20; TEMP 37.3; O2SAT 96; BMI 22.7
[2023-11-22 13:06] LABS: UTC Influenza A Antigen Negative (Negative); UTC Influenza B Antigen Negative (Negative); UTC Strep Screen (Rapid) Positive (Negative)
--- NOTE | 2023-11-22 13:09 | ED_ITS ---
Discharge Plan Disposition Patient Disposition: Home, Self-Care Condition: Good Prescriptions Prescriptions: New amoxicillin 500 mg capsule 500 mg PO BID 10 Days Qty: 20 0RF promethazine 12.5 mg tablet 12.5 mg PO TID PRN (Reason: nausea and vomiting) Qty: 10 0RF No Action escitalopram oxalate 10 mg tablet 10 mg PO DAILY levonorgestrel-ethinyl estrad [Aviane] 0.1-20 mg-mcg tablet 1 tab PO DAILY Qty: 28 2RF Referrals Follow up/Referrals: Jhony Rosa MD [Primary Care Provider] - See instructions Activity Restrictions/Add. Instructions Additional Instructions/Restrictions: *Monitor Temp, Over the counter Motrin or Tylenol as directed/as needed Tylenol every 4 hours and Motrin every 6 hours (as long as your family doctor has told you that you can take it) for fever or pain. and straight to ER if unable to lower temp less than 101.0 after medication given *Warm salt water gargles may help to soothe the throat *Throat Lozenges? *Warm fluids like tea with honey may help to soothe the throat? *Sleep elevated *Humidifier/Vaporizer *If you did not take Penicillin shot or was unable to, start taking antibiotic immediately and make sure that you take it for the FULL length of time although you should start to feel better in 24-48 hours *change toothbrush and toothpaste 24-48 hours after starting to take antibiotics so you do not reinfect yourself Monitor Temp. Tylenol and/or Ibuprofen as needed. ER if fever is no less than 101 despite alternating Tylenol and Ibuprofen * Encourage fluids, water, Gatorade, powerade, pedialyte if /toddler/or child *Cold fluids, popsicles and ice cream may feel good on his throat Follow up IMMEDIATELY for new or worsening symptoms or no Noticeable improvement over the next 48-72 hours. 911 for difficulty breathing or swallowing Clinical Impressions Clinical Impression: Strep throat Stand Alone Forms Stand Alone Forms: Work/School Release Instructions Patient Instructions: DI for Strep Throat, Strep Throat Discharge ED Provider: Emily Hercules [facility] [place] General Stated complaint: vomiting Mode of Arrival: Ambulatory Source of Information: Patient Limitations: No Limitations Time Seen by Provider: 11/22/23 13:10 Description of Symptoms (Recalled from Triage Doc. by RN): PATIENT C/O VOMITING, HEADACHE, AND HOT/COLD FLASHES THAT STARTED YESTERDAY HEENT Symptoms (Recalled from RN notes): Yes Resp Symptoms (Recalled from RN notes): No Skin Symptoms (Recalled from RN notes): No MS Symptoms (Recalled from RN notes): No Functional Status (Recalled from RN notes): WNL History of Present Illness Provider Complaint: Patient states that she started feeling bad yesterday States that her throat has been scratchy, headache, N/V and feeling hot then cold thinks she may have had fever so today when she wasnt feeling any better she came in to get checked Related Data Home Medications Medication Instructions Recorded Confirmed escitalopram oxalate 10 mg tablet 10 mg PO DAILY 10/22/23 10/22/23 Previous Rx's Medication Instructions Recorded levonorgestrel-ethinyl estradiol 1 tab PO DAILY #28 tabs 10/22/23 0.1 mg-20 mcg tablet (Aviane) amoxicillin 500 mg capsule 500 mg PO BID 10 days #20 caps 11/22/23 promethazine 12.5 mg tablet 12.5 mg PO TID PRN nausea and 11/22/23 vomiting #10 tabs Allergies Allergy/AdvReac Type Severity Reaction Status Date / Time No Known Allergies Allergy Verified 10/22/23 11:19 Worker's Comp Is this a Worker's Comp case?: No PFSH PFS Disclaimer: The information contained in this section may have been updated after the patient was seen, as this information can be updated by other users. Medical History Anxiety Irregular periods/menstrual cycles No significant past medical history Surgical History History of laparoscopic cholecystectomy Social History Smoking Status: Never smoker second hand exposure: No alcohol intake: never substance use type: denies use current occupational status: student Travel in the last 8 weeks: None household members: family housing: house lives independently: No marital status: single education level: high school current occupational exposures/hazards: No caffeine: No do you feel safe at home: Yes victim of physical abuse: No victim of emotional abuse: No victim of sexual abuse: No would you like helpful sources: No ROS Obtained: Yes All systems reviewed & no additional complaints except as documented and Yes Systems reviewed as appropriate & no additional complaints except as documented Constitutional Constitutional: Reports system reviewed and no additional complaints, except as documented, Reports as per HPI, Reports chills and Reports headache(s) ENT Ears, Nose, Mouth, and Throat: Reports system reviewed and no additional complaints, except as documented, Reports as per HPI, Reports headache(s) and Reports sore throat Cardiovascular Cardiovascular: Reports system reviewed and no additional complaints, except as documented and Reports as per HPI Respiratory Respiratory: Reports system reviewed and no additional complaints, except as documented and Reports as per HPI Gastrointestinal Gastrointestingal: Reports system reviewed and no additional complaints, except as documented, as per HPI, nausea and vomiting Neurologic Neurologic: Reports headache(s) Physical Exam General General appearance: alert and in no apparent distress ENT ENT exam: Present mucous membranes moist Expanded ENT Exam Throat exam: Present tonsillar erythema Respiratory Respiratory exam: Present normal lung sounds bilaterally; Absent respiratory distress or wheezes Cardiovascular Cardiovascular exam: Present regular rate, normal rhythm and normal heart sounds Abdominal Exam Abdominal exam: Present soft and normal bowel sounds; Absent distention or tenderness Neurological Exam Neurological exam: Present alert, oriented X3 and normal gait Medical Decision Making [facility] Inquiry Pt receiving controlled substance: No [facility] was queried for this patient: No Vital Signs: 11/22/23 12:40 Temperature 99.2 F Temperature Source Oral Pulse Rate [Left Brachial] 89 Respiratory Rate 20 Blood Pressure [Left Arm] 127/85 Blood Pressure Mean [Left Arm] 99 Blood Pressure Source [Left Arm] Automatic Cuff Blood Pressure Position [Left Arm] Sitting 02 Sat by Pulse Oximetry 96 Oxygen Delivery Method Room Air Lab Data Lab results reviewed: Yes I reviewed the patient's lab results. Lab Results 11/22/23 12:57: Influenza Type A Ag Negative, Influenza Type B Ag Negative, Strep Scn Rapid Clinic Positive A
[2023-11-22 13:20] VITALS: BP 127/85; PULSE 89; RESP 20; TEMP 37.3; O2SAT 96
== END 2023-11-22 13:23 | disposition home or self-care (01) ==
PROVIDERS: Emergency Provider Nurse Practitioner; PCP Internal Medicine Adolescent Medicine
DX: J02.0 Streptococcal pharyngitis (principal); R11.2 Nausea with vomiting, unspecified; R51.9 Headache, unspecified
CPT/HCPCS: 87804; 87880; 99212; 99214; G0463

== ENCOUNTER 2023-12-09 11:40 | Emergency (ER) | payer BC, SELFPAY ==
[2023-12-09 11:50] VITALS: BP 125/75; PULSE 86; RESP 18; TEMP 37.2; O2SAT 97; BMI 23.1
--- NOTE | 2023-12-09 11:56 | ED_ITS ---
Discharge Plan Disposition Patient Disposition: Home, Self-Care Condition: Good Prescriptions Prescriptions: New methylprednisolone 4 mg Tablets,Dose Pack 4 mg PO DIRECTED 6 Days Qty: 21 0RF Rx Instructions: Take 1 pack as directed for 6 days No Action escitalopram oxalate 10 mg tablet 10 mg PO DAILY levonorgestrel-ethinyl estrad [Aviane] 0.1-20 mg-mcg tablet 1 tab PO DAILY Qty: 28 2RF promethazine 12.5 mg tablet 12.5 mg PO TID PRN (Reason: nausea and vomiting) Qty: 10 0RF Referrals Follow up/Referrals: Jhony Rosa MD [Primary Care Provider] - See instructions Marin Sanchez DO [Staff Physician] - See instructions Activity Restrictions/Add. Instructions Additional Instructions/Restrictions: Rest the extremity, Wear the merritt wrap for compression, Elevate the extremity as tolerated while you are resting. Take the medication as directed. Follow up with Dr. Sanchez (orthopedics). I put in a referral but you need to call her office and schedule an appointment. Follow up with your regular doctor. GO TO THE ER FOR ANY WORSENING SYMPTOMS Clinical Impressions Clinical Impression: Pain in right knee Stand Alone Forms Stand Alone Forms: Work/School Release Instructions Patient Instructions: DI for Knee Pain, How to Apply an Elastic Wrap on Knee Discharge ED Provider: Raz Walden [facility] General Stated complaint: right knee pain/swelling Time Seen by Provider: 12/09/23 11:55 History of Present Illness Provider Complaint: She states that for the past 3 days she has had right knee pain. She denies any injury. She denies any history of knee pain or any injuries. She denies fever and malaise. Related Data Home Medications Medication Instructions Recorded Confirmed escitalopram oxalate 10 mg tablet 10 mg PO DAILY 10/22/23 12/09/23 Previous Rx's Medication Instructions Recorded levonorgestrel-ethinyl estradiol 1 tab PO DAILY #28 tabs 10/22/23 0.1 mg-20 mcg tablet (Aviane) promethazine 12.5 mg tablet 12.5 mg PO TID PRN nausea and 11/22/23 vomiting #10 tabs methylprednisolone 4 mg tablets in 4 mg PO DIRECTED 6 days #21 tabs 12/09/23 a dose pack Allergies Allergy/AdvReac Type Severity Reaction Status Date / Time No Known Allergies Allergy Verified 12/09/23 12:08 [facility] [place] Disclaimer: The information contained in this section may have been updated after the patient was seen, as this information can be updated by other users. Medical History Anxiety Irregular periods/menstrual cycles No significant past medical history Surgical History History of laparoscopic cholecystectomy Social History Smoking Status: Never smoker second hand exposure: No alcohol intake: never substance use type: denies use current occupational status: student Travel in the last 8 weeks: None household members: family housing: house lives independently: No marital status: single education level: high school current occupational exposures/hazards: No caffeine: No do you feel safe at home: Yes victim of physical abuse: No victim of emotional abuse: No victim of sexual abuse: No would you like helpful sources: No ROS Obtained: Yes All systems reviewed & no additional complaints except as documented Constitutional Constitutional: Denies chills and Denies fever(s) Eyes Eyes: Denies eye discharge ENT Ears, Nose, Mouth, and Throat: Denies dizziness, Denies otalgia and Denies sore throat Cardiovascular Cardiovascular: Denies chest pain Respiratory Respiratory: Denies shortness of breath, Denies chest congestion, Denies cough, Denies stridor and Denies wheezing Gastrointestinal Gastrointestingal: Denies nausea or vomiting Musculoskeletal Musculoskeletal: Reports as per HPI Integumentary/Breasts Skin/Breast: Denies rash Neurologic Neurologic: Denies dizziness and Denies paresthesias Allergic/Immunologic Allergic/Immunologic: Denies wheezing Physical Exam General General appearance: alert and in no apparent distress Head Head exam: atraumatic, normocephalic and normal inspection Eye Eye exam: Present normal appearance, PERRL and EOMI ENT ENT exam: Present normal exam, normal oropharynx, mucous membranes moist, TM's normal bilaterally and normal external ear exam Neck Neck exam: Present normal inspection, full ROM and trachea midline; Absent meningismus or lymphadenopathy Chest Chest inspection: Present normal inspection and symmetric chest wall rise; Absent tenderness Respiratory Respiratory exam: Present normal lung sounds bilaterally; Absent respiratory distress Cardiovascular Cardiovascular exam: Present regular rate and normal rhythm; Absent JVD Abdominal Exam Abdominal exam: Present soft and normal bowel sounds; Absent distention, tenderness or guarding Extremities Exam Extremities exam: Present normal capillary refill; Absent calf tenderness Expanded Lower Extremity Exam Right: Knee exam: Present full ROM, tenderness, swelling and knee extension intact; Absent abrasion, laceration, ecchymosis, deformity, crepitus, dislocation, erythema, effusion, anterior drawer sign, posterior draw sign, pain with valgus, laxity with valgus, pain with varus or laxity with varus Lower leg exam: Present normal inspection, full ROM and Achilles tendon intact; Absent tenderness or Homans' sign Ankle exam: Present normal inspection and full ROM; Absent tenderness Foot/toe exam: Present normal inspection and full ROM; Absent tenderness Neurovascular/Tendon exam: Present normal capillary refill; Absent pulse deficit, motor deficit, sensory deficit, tendon deficit or extremity cold to touch Gait: observed and normal Back Exam Back exam: Present normal inspection; Absent tenderness Neurological Exam Neurological exam: Present alert and oriented X3 Psychiatric Psychiatric exam: Present normal affect and normal mood Skin Skin exam: Present warm, dry, intact and normal color Lymphatic Lymphatic Findings: no adenopathy Medical Decision Making Medical Records Medical records reviewed: No I reviewed the patient's medical records. [facility] Inquiry Pt receiving controlled substance: No Procedures Risk/Benefits of Procedure(s) Were Explained: Yes Orthopedic Splinting/Casting Injury #1: Side: right Lower Extremity Injury Location: knee Lower Extremity Immobilizer: Merritt wrap and applied by nurse/dr funk Post Cast/Splinting Neuro Status: intact and no change Post Cast/Splinting Vasc Status: intact and no change
[2023-12-09 12:56] VITALS: BP 125/75; PULSE 86; RESP 18; TEMP 37.2; O2SAT 97
== END 2023-12-09 12:56 | disposition home or self-care (01) ==
PROVIDERS: Emergency Provider Nurse Practitioner Family; PCP Internal Medicine Adolescent Medicine
DX: M25.561 Pain in right knee (principal)
CPT/HCPCS: 99212; 99214; G0463

== ENCOUNTER 2024-02-24 15:17 | Emergency (ER) | payer BC, SELFPAY ==
[2024-02-24] VITALS (13 sets, daily range): BP systolic 86–147; BP diastolic 51–99; PULSE 68–127; RESP 16–20; TEMP 37.2; O2SAT 90–100; BMI 22.3
--- NOTE | 2024-02-24 15:28 | CT_ITS ---
PROCEDURE INFORMATION: Exam: CT Abdomen And Pelvis With Contrast Exam date and time: 02/24/2024 4:42 PM Age: 18 years old Clinical indication: Abdominal pain; Localized; Right lower quadrant (rlq); Prior surgery; Surgery date: 6+ months; Surgery type: Gb removed; Additional info: Severe suprapubic and rlq pain TECHNIQUE: Imaging protocol: Computed tomography of the abdomen and pelvis with contrast. Radiation optimization: All CT scans at this facility use at least one of these dose optimization techniques: automated exposure control; mA and/or kV adjustment per patient size (includes targeted exams where dose is matched to clinical indication); or iterative reconstruction. Contrast material: ISOVUE; Contrast volume: 75 ml; Contrast route: IV; COMPARISON: CT ABDOMEN PELVIS W CON 05/08/2023 11:48 PM FINDINGS: Lungs: Right lung base granuloma. Heart: Base of heart is unremarkable as visualized. Liver: Normal. No mass. Gallbladder and bile ducts: Status post cholecystectomy. Pancreas: Normal. No ductal dilation. Spleen: Punctate granulomas of the spleen. Stable heterogeneous parenchyma of the spleen similar to prior comparisons. Adrenal glands: Normal. No mass. Kidneys and ureters: Normal. No hydronephrosis. Stomach and bowel: Unremarkable. No obstruction. No mucosal thickening. Mild colonic stool burden. Appendix: No evidence of appendicitis. Intraperitoneal space: Unremarkable. No free air. No significant fluid collection. Vasculature: Unremarkable. No abdominal aortic aneurysm. Lymph nodes: Unremarkable. No enlarged lymph nodes. Urinary bladder: Unremarkable as visualized. Reproductive: Unremarkable as visualized. Bones/joints: Unremarkable. No acute fracture. Soft tissues: Unremarkable. IMPRESSION: 1. No acute intra-abdominal findings. 2. Additional findings as above.
--- NOTE | 2024-02-24 15:28 | PC.NURSE ---
in room talking with patient at this time
[2024-02-24 15:29] LABS: Microscopic, Urine URINE MICROSCOPIC (MICROSCOPIC)
[2024-02-24 15:30] LABS: Appearance,Urine SL CLOUDY (Clear); Bilirubin,Urine Negative (Negative); Blood, Urine TRACE-I (Negative); Color,Urine YELLOW (Yellow); Glucose,Urine (UA) Negative (Negative); Ketones,Urine Negative (Negative); Leukocyte Esterase,Urine 1+ (Negative); Nitrate,Urine Negative (Negative); PH,Urine 5.5 (5.0-8.5); Protein,Urine Negative (Negative); Specific Gravity, Urine >= 1.030 (1.005-1.030); Urobilinogen,Urine 0.2 EU/dl (0.2)
--- NOTE | 2024-02-24 15:30 | HMH.EDGENADL ---
Discharge Plan Disposition Patient Disposition: Home, Self-Care Prescriptions Prescriptions: New nitrofurantoin monohyd/m-cryst [Macrobid] 100 mg capsule 100 mg PO BID 5 Days Qty: 10 0RF Rx Instructions: must administer with a meal/food dicyclomine 10 mg capsule 20 mg PO TID Qty: 18 0RF No Action escitalopram oxalate 10 mg tablet 10 mg PO DAILY levonorgestrel-ethinyl estrad [Aviane] 0.1-20 mg-mcg tablet 1 tab PO DAILY Qty: 28 2RF methylprednisolone 4 mg Tablets,Dose Pack 4 mg PO DIRECTED 6 Days Qty: 21 0RF Rx Instructions: Take 1 pack as directed for 6 days promethazine 12.5 mg tablet 12.5 mg PO TID PRN (Reason: nausea and vomiting) Qty: 10 0RF Referrals Follow up/Referrals: Jhony Rosa MD [Primary Care Provider] - See instructions Dianne Taylor DO [Staff Physician] - See instructions Activity Restrictions/Add. Instructions Additional Instructions/Restrictions: At this time it was felt you are safe to be discharged home. If new or worsening symptoms please do not hesitate to return the emergency department. Please call and schedule appoint with Dr. Fulton early next week as discussed. Please take your medications as prescribed. Clinical Impressions Clinical Impression: Abdominal pain, UTI (urinary tract infection) Instructions Patient Instructions: DI for Acute Abdominal Pain Discharge ED Provider: Solo Aldana General Adult HPI General Chief complaint: Abdominal Pain Stated complaint: Vomiting,LRQ Abd pain Time Seen by Provider: 02/24/24 15:23 Mode of Arrival: Ambulatory Source of Information: Patient Limitations: No Limitations Description of Symptoms (Recalled from ER Triage Doc. by RN): lower jason abd pain History of Present Illness HPI narrative: Patient is a 18-year-old female with past medical history of previous cholecystectomy, last menstrual period a few months ago however has irregular periods who presents emergency department for severe abdominal pain. Onset was acute, 20 minutes prior to arrival, suprapubic and right lower quadrant, intractable, severe, nonmodifiable, there is associated vomiting. Last bowel movement yesterday. No dysuria. No other acute complaints at this time. Related Data Home Medications Medication Instructions Recorded Confirmed escitalopram oxalate 10 mg tablet 10 mg PO DAILY 12/11/23 01/28/24 Previous Rx's Medication Instructions Recorded levonorgestrel-ethinyl estradiol 1 tab PO DAILY #28 tabs 10/22/23 0.1 mg-20 mcg tablet (Aviane) promethazine 12.5 mg tablet 12.5 mg PO TID PRN nausea and 11/22/23 vomiting #10 tabs methylprednisolone 4 mg tablets in 4 mg PO DIRECTED 6 days #21 tabs 12/09/23 a dose pack dicyclomine 10 mg capsule 20 mg (2 x 10 mg) PO TID abdominal 02/24/24 spasm #18 caps nitrofurantoin 100 mg PO BID 5 days #10 caps 02/24/24 monohydrate/macrocrystals 100 mg capsule (Macrobid) Allergies Allergy/AdvReac Type Severity Reaction Status Date / Time No Known Allergies Allergy Verified 12/09/23 12:08 [facility] Disclaimer: The information contained in this section may have been updated after the patient was seen, as this information can be updated by other users. Medical History Anxiety Irregular periods/menstrual cycles No significant past medical history Surgical History History of laparoscopic cholecystectomy Social History Smoking Status: Never smoker second hand exposure: No alcohol intake: never substance use type: denies use current occupational status: student Travel in the last 8 weeks: None household members: family housing: house lives independently: No marital status: single education level: high school current occupational exposures/hazards: No caffeine: No do you feel safe at home: Yes victim of physical abuse: No victim of emotional abuse: No victim of sexual abuse: No would you like helpful sources: No ROS Obtained: Yes Systems reviewed as appropriate & no additional complaints except as documented Physical Exam General General appearance: alert and in distress Head Head exam: atraumatic and normocephalic Eye Eye exam: Present PERRL ENT ENT exam: Present mucous membranes moist Neck Neck exam: Present normal inspection Chest Chest inspection: Present normal inspection and symmetric chest wall rise Respiratory Respiratory exam: Present normal lung sounds bilaterally; Absent respiratory distress Cardiovascular Cardiovascular exam: Present normal rhythm and tachycardia Abdominal Exam Abdominal exam: Present soft, tenderness (Suprapubic, right lower quadrant) and guarding (Voluntary) Extremities Exam Extremities exam: Present normal inspection Neurological Exam Neurological exam: Present alert Psychiatric Psychiatric exam: Present normal affect Skin Skin exam: Present warm and dry Medical Decision Making [facility] Inquiry Pt receiving controlled substance: No Vital Signs: 02/24/24 15:24 02/24/24 15:26 02/24/24 15:30 Temperature 98.9 F Temperature Source Oral Pulse Rate 117 H 123 H Pulse Rate [Right Radial] 118 H Respiratory Rate 20 Blood Pressure 147/79 H 116/82 Blood Pressure [Right Arm] 147/79 H Blood Pressure Mean [Right Arm] 101 Blood Pressure Source Blood Pressure Position 02 Sat by Pulse Oximetry 96 97 95 Oxygen Delivery Method Room Air 02/24/24 15:47 02/24/24 16:00 02/24/24 16:24 Temperature Temperature Source Pulse Rate 127 H 104 H 82 Pulse Rate [Right Radial] Respiratory Rate Blood Pressure 128/99 H 108/68 L 125/57 L Blood Pressure [Right Arm] Blood Pressure Mean [Right Arm] Blood Pressure Source Blood Pressure Position 02 Sat by Pulse Oximetry 90 L 91 L 99 Oxygen Delivery Method Room Air 02/24/24 16:30 02/24/24 17:30 02/24/24 17:45 Temperature Temperature Source Pulse Rate 77 74 94 H Pulse Rate [Right Radial] Respiratory Rate Blood Pressure 98/53 L 86/51 L 99/66 L Blood Pressure [Right Arm] Blood Pressure Mean [Right Arm] Blood Pressure Source Blood Pressure Position 02 Sat by Pulse Oximetry 100 100 100 Oxygen Delivery Method Room Air 02/24/24 17:48 02/24/24 18:20 02/24/24 18:30 Temperature Temperature Source Pulse Rate 85 81 70 Pulse Rate [Right Radial] Respiratory Rate Blood Pressure 99/66 L 113/55 L 100/63 L Blood Pressure [Right Arm] Blood Pressure Mean [Right Arm] Blood Pressure Source Automatic Cuff Blood Pressure Position Supine 02 Sat by Pulse Oximetry 99 97 97 Oxygen Delivery Method Room Air Lab Data Lab Results 02/24/24 15:24: Urine Color Yellow, Urine Appearance Sl cloudy, Urine pH 5.5, Ur Specific [place] >= 1.030, Urine Protein Negative, Urine Glucose (UA) Negative, Urine Ketones Negative, Urine Blood Trace-i, Urine Nitrate Negative, Urine Bilirubin Negative, Urine Urobilinogen 0.2, Ur Leukocyte Esterase 1+ A, Urine RBC Occasional, Urine WBC 3-5, Ur Squamous Epith Cells 10-20, Urine Bacteria 1+ 02/24/24 15:30: WBC 9.4, RBC 5.15, Hgb 14.7, Hct 45.3, MCV 87.8, MCH 28.6, MCHC 32.6, RDW 13.2, Plt Count 330, MPV 7.4, Neut % (Auto) 61.4, Lymph % (Auto) 30.9, [place] % (Auto) 5.1, Eos % (Auto) 1.1, Baso % (Auto) 1.4, Neut # (Auto) 5.8, Lymph # (Auto) 2.9, [place] # (Auto) 0.5, Eos # (Auto) 0.1, Baso # (Auto) 0.1, Sodium 142, Potassium 3.5, Chloride 107, Carbon Dioxide 24, Anion Gap 14.5, BUN 11, Creatinine 0.90, Estimated Creat Clear 93, Estimated GFR 80, Est GFR ( Amer) 97, Glucose 86, Lactate 1.7, Calcium 9.8, Total Bilirubin 2.1 H, Direct Bilirubin 0.3, AST 65 H, ALT 112 H, Alkaline Phosphatase 61, C-Reactive Protein < 0.3, Total Protein 8.1, Albumin 4.8, Globulin 3.3 H, Albumin/Globulin Ratio 1.5, Lipase 70, Serum HCG, Qual Negative 02/24/24 15:30 02/24/24 15:30 Orders (Tests/Meds): ED MEDICATIONS Generic Name Dose Route Start Last Admin Trade Name Freq PRN Reason Stop Dose Admin Sodium Chloride 10 ml 02/24/24 16:40 Sodium Chloride 0.9% 10ml Syr (Rad Only) IV 03/25/24 16:39 NEEDED PRN Maintain IV Site Discontinued Medications Generic Name Dose Route Start Last Admin Trade Name Freq PRN Reason Stop Dose Admin Acetaminophen 1,000 mg 02/24/24 15:28 02/24/24 15:41 Acetaminophen 1,000mg/100ml Vial IV 02/24/24 15:29 1,000 mg ONCE ONE Administration Dicyclomine HCl 20 mg 02/24/24 18:37 02/24/24 18:51 Dicyclomine 10mg Capsule PO 02/24/24 18:38 20 mg ONCE ONE Administration Lactated Ringer's 1,000 mls @ 999 mls/hr 02/24/24 15:28 02/24/24 15:41 Lactated Ringer's 1000 Ml Bag IV 02/24/24 16:28 999 mls/hr .Q1H1M ONE Administration Iopamidol 75 ml 02/24/24 16:40 02/24/24 16:42 Iopamidol-370 (76%);100ml Bottle IV 02/24/24 16:41 75 ml ONCE ONE Administration Ketorolac Tromethamine 30 mg 02/24/24 15:28 02/24/24 15:41 Ketorolac 30mg/Ml Vial IV 02/24/24 15:29 30 mg ONCE ONE Administration Morphine Sulfate 4 mg 02/24/24 15:28 02/24/24 15:34 Morphine 4mg/Ml Syringe IV 02/24/24 15:29 4 mg ONCE ONE Administration Morphine Sulfate 4 mg 02/24/24 17:48 02/24/24 17:55 Morphine 4mg/Ml Syringe IV 02/24/24 17:49 4 mg ONCE ONE Administration Ondansetron HCl 4 mg 02/24/24 15:28 02/24/24 15:41 Ondansetron 4mg/2ml Vial IV 02/24/24 15:29 4 mg ONCE ONE Administration Oxycodone HCl 5 mg 02/24/24 18:39 02/24/24 18:50 Oxycodone 5mg Immediate Release Tablet PO 02/24/24 18:40 5 mg ONCE ONE Administration ORDERS Category Date Time Status CT abdomen pelvis w con Stat Cat Scan 02/24/24 15:28 Completed US transvaginal Stat Exams 02/24/24 17:48 Completed Bilirubin,Direct Stat Lab 02/24/24 15:30 Completed CBC w/Auto Diff [Complete Blood Count Auto Diff] Stat Lab 02/24/24 15:30 Completed CMP [Comprehensive Metabolic Panel] Stat Lab 02/24/24 15:30 Completed CRP [C-Reactive Protein] Stat Lab 02/24/24 15:30 Completed HCG Qualitative, Serum Stat Lab 02/24/24 15:30 Completed Lactic Acid Stat Lab 02/24/24 15:30 Completed Lipase Stat Lab 02/24/24 15:30 Completed UA [Urinalysis and Microscopic] Stat Lab 02/24/24 15:24 Completed Urine Culture Stat Micro 02/24/24 15:24 Received Medical Decision Narrative: In summary patient is a 18-year-old female past medical history described above presents emergency department for evaluation of severe abdominal pain. Patient is hemodynamically stable nontoxic-appearing upon arrival, appearing in significant pain, afebrile, tachycardic. Differential diagnosis includes appendicitis, , ovarian torsion, ureterolithiasis, among others. Workup will be conducted with hematologic labs, urinalysis, CT abdomen pelvis IV contrast. Initial interventions include morphine, Toradol, Tylenol, Zofran, crystalloid bolus. Workup reviewed by me, hematologic labs are nonactionable, no leukocytosis, patient does have total bilirubin for which direct bilirubin was obtained which is normal, very mild transaminitis of undetermined etiology however patient's lipase is normal and has previous cholecystectomy, hCG negative. Urinalysis interpreted by me and equivocal for infection. Given location of pain will be treated with antibiotics. CT imaging and transvaginal ultrasound negative for acute pathology or torsion. On repeat evaluation patient had persistent pain for which morphine and Bentyl was administered. Patient underwent a period of observation and had partial resolution of pain. Shared decision-making discussion was had as to admission for intractable pain with observation versus rapid outpatient [employer] follow-up for possible endometriosis or other pathology. Patient elected to go home at this time with strict return precautions. Given the possibility of bladder spasm secondary to equivocal urinary tract infection patient be treated with a course of antibiotics and will be discharged with a prescription for Bentyl and was given return precautions. Critical Care Critical Care Time Critical Care Time: No
[2024-02-24] MEDS: MORPHINE 4MG/ML SYRINGE 4 MG IV ×2 (15:34→17:55)
[2024-02-24] MEDS: KETOROLAC 30MG/ML VIAL 30 MG IV (15:41)
[2024-02-24] MEDS: LACTATED RINGERS 1000ML 1,000 ML 999 ML IV (15:41)
[2024-02-24] MEDS: ONDANSETRON 4MG/2ML VIAL 4 MG IV (15:41)
[2024-02-24] MEDS: ACETAMINOPHEN 1,000MG/100ML VIAL 1000 MG IV (15:41)
[2024-02-24 15:45] LABS: Bacteria,Urine 1+ /lpf; RBC,Urine Occasional #/hpf (0-3)
[2024-02-24 16:02] LABS: Basophils # 0.1 K/mm3 (0-0.2); Basophils % 1.4 % (0.1-2.0); Eosinophils # 0.1 K/mm3 (0.0-0.4); Eosinophils % 1.1 % (0.1-12.0); Hematocrit 45.3 % (37.0-47.0); Hemoglobin 14.7 g/dL (12.2-16.2); Lymphocytes # 2.9 K/mm3 (0.7-4.5); Lymphocytes % 30.9 % (10-50); Mean Corpuscular HGB Conc 32.6 g/dL (31.8-35.4); Mean Corpuscular Hemoglobin 28.6 pg (27.0-31.2); Mean Corpuscular Volume 87.8 fl (81-99); Mean Platelet Volume 7.4 fl (7.4-10.4); Monocytes # 0.5 K/mm3 (0.1-1.0); Monocytes % 5.1 % (1.7-9.3); Neutrophils # 5.8 K/mm3 (1.8-7.8); Neutrophils % 61.4 % (37.0-80.0); Platelet Count 330 K/mm3 (142-424); Red Blood Count 5.15 M/mm3 (4.20-5.40); Red Cell Distribution Width 13.2 % (11.5-17.5); White Blood Count 9.4 K/mm3 (4.5-13.0)
[2024-02-24 16:07] LABS: Alanine Aminotransferase 112 U/L (12-78); Albumin Level 4.8 g/dl (3.5-5.0); Albumin/Globulin Ratio 1.5 (1.1-1.8); Alkaline Phosphatase 61 U/L (38-126); Anion Gap 14.5 mEq/L (5-15); Aspartate Amino Transferase 65 U/L (14-36); Bilirubin,Total 2.1 mg/dl (0.2-1.3); Blood Urea Nitrogen 11 mg/dl (7-17); Calcium 9.8 mg/dl (8.4-10.2); Carbon Dioxide 24 mmol/L (22.0-30.0); Chloride 107 mmol/L (98-107); Creatinine Clearance Estimated 93 mL/min (50-200); Estimated Glomerular Filt Rate 80 ml/min (>60); GFR (African American) 97 ML/MIN (>60); Globulin 3.3 g/dL (1.3-3.2); Glucose 86 mg/dl (74-100); Lipase 70 U/L (23-300); Potassium 3.5 mmoL/L (3.5-5.1); Sodium 142 mmol/L (136-145); Total Protein,Serum 8.1 g/dl (6.3-8.2)
[2024-02-24 16:08] LABS: Lactic Acid 1.7 mmol/L (0.7-2.1)
[2024-02-24 16:16] LABS: C-Reactive Protein < 0.3 mg/L (0-4)
[2024-02-24 16:20] LABS: HCG Qualitative, Serum Negative (Negative)
[2024-02-24] MEDS: IOPAMIDOL-370 (76%);100ML BOTTLE 75 ML IV (16:42)
[2024-02-24 17:37] LABS: Bilirubin,Direct 0.3 mg/dl (0.0-0.4)
--- NOTE | 2024-02-24 17:48 | US_ITS ---
PROCEDURE INFORMATION: Exam: US Pelvis, Transvaginal Exam date and time: 02/24/2024 5:58 PM Age: 18 years old Clinical indication: Pelvic pain; Additional info: Severe lower abd pain LABS AND CLINICAL REPORTS: Last menstrual period start date: 11/26/2023 TECHNIQUE: Imaging protocol: Real-time transvaginal pelvic ultrasound with image documentation. Transvaginal imaging was used for better evaluation of the endometrium, adnexa, and/or cervix. COMPARISON: US TRANSVAGINAL 03/21/2023 1:27 PM FINDINGS: Uterus: Uterus measures 6.42 cm x 4.37 cm x 3.55 cm. Retroverted uterus. Right ovary/adnexa: Right ovary measures 3.75 cm x 2.31 cm x 2.19 cm. Right ovarian volume is 9.93 mL. Left ovary/adnexa: Left ovary measures 3.7 cm x 2.11 cm x 2.55 cm. Left ovarian volume is 10.42 mL. Intraperitoneal space: No free fluid. IMPRESSION: 1. Borderline PCOS morphology, rule out clinically. 2. Retroverted uterus.
[2024-02-24] MEDS: OXYCODONE 5MG IMMEDIATE RELEASE TABLET 5 MG PO (18:50)
[2024-02-24] MEDS: DICYCLOMINE 10MG CAPSULE 20 MG PO (18:51)
== END 2024-02-24 19:37 | disposition home or self-care (01) ==
PROVIDERS: Emergency Provider Emergency Medicine; PCP Internal Medicine Adolescent Medicine
DX: R10.31 Right lower quadrant pain (principal); N39.0 Urinary tract infection, site not specified; B96.89 Other specified bacterial agents as the cause of diseases classified elsewhere
CPT/HCPCS: 74177; 76830; 80053; 81001; 82248; 83605; 83690; 84703; 85025; 86140; 87086; 96361; 96374; 96375; 96376; 99285; J0131; J2405; Q9967

== ENCOUNTER 2024-02-25 08:26 | Emergency (ER) | payer BC, SELFPAY ==
[2024-02-25 08:36] VITALS: BP 104/60; PULSE 78; O2SAT 100
--- NOTE | 2024-02-25 08:37 | PC.NURSE ---
Dr. López at [facility] for pt eval
[2024-02-25 08:40] VITALS: BP 104/60; PULSE 78; RESP 18; TEMP 37.1; O2SAT 100; BMI 24.0
--- NOTE | 2024-02-25 08:57 | ED_ITS ---
Discharge Plan Disposition Patient Disposition: Home, Self-Care Condition: Fair Prescriptions Prescriptions: New oxycodone 5 mg tablet 5 mg PO Q6H PRN (Reason: pain) 2 Days Qty: 8 0RF No Action escitalopram oxalate 10 mg tablet 10 mg PO DAILY levonorgestrel-ethinyl estrad [Aviane] 0.1-20 mg-mcg tablet 1 tab PO DAILY Qty: 28 2RF methylprednisolone 4 mg Tablets,Dose Pack 4 mg PO DIRECTED 6 Days Qty: 21 0RF Rx Instructions: Take 1 pack as directed for 6 days promethazine 12.5 mg tablet 12.5 mg PO TID PRN (Reason: nausea and vomiting) Qty: 10 0RF nitrofurantoin monohyd/m-cryst [Macrobid] 100 mg capsule 100 mg PO BID 5 Days Qty: 10 0RF Rx Instructions: must administer with a meal/food dicyclomine 10 mg capsule 20 mg PO TID Qty: 18 0RF Referrals Follow up/Referrals: Jhony Rosa MD [Primary Care Provider] - See instructions Activity Restrictions/Add. Instructions Additional Instructions/Restrictions: You have been evaluated in the ED for your complaints. You may follow-up with your PCP in the next 3 to 5 days. Please return to ED for any new or worsening symptoms. As discussed, you will follow-up with [facility] on tomorrow for further evaluation. Please take the pain medication prescribed to you to assist with your pain. You may also add Tylenol and Motrin to further assess. Clinical Impressions Clinical Impression: Lower abdominal pain Instructions Patient Instructions: DI for Acute Abdominal Pain Discharge ED Provider: Kyle López Adult HPI General Chief complaint: Abdominal Pain Stated complaint: abd pain Time Seen by Provider: 02/25/24 08:30 Mode of Arrival: Wheelchair Source of Information: Parent(s) Limitations: No Limitations Description of Symptoms (Recalled from ER Triage Doc. by RN): Pt was seen in the ED yesterday, pt returned today for the same uncontrolled pain in her lower abdomen. Mother reports she tried making an appt with OB office this morning as advised but they referred her to the ED for pain control. History of Present Illness HPI narrative: 18-year-old female with past medical history significant for irregular menstrual cycles, anxiety, presents today for evaluation concerning lower abdominal pain which she states has been present since yesterday however uncontrolled. She was seen in the ED yesterday where she had CT imaging that did not show any acute abnormalities. She had a transvaginal ultrasound that revealed findings concerning for PCOS. Has not been able to follow-up with [facility] as of yet. Was given morphine and Toradol in the ED and was able be discharged with improved pain however pain has returned. She has been nauseated without emesis. Has not had any vaginal bleeding or dysuria. No further complaints. Related Data Home Medications Medication Instructions Recorded Confirmed escitalopram oxalate 10 mg tablet 10 mg PO DAILY 10/22/23 12/09/23 Previous Rx's Medication Instructions Recorded levonorgestrel-ethinyl estradiol 1 tab PO DAILY #28 tabs 10/22/23 0.1 mg-20 mcg tablet (Aviane) promethazine 12.5 mg tablet 12.5 mg PO TID PRN nausea and 11/22/23 vomiting #10 tabs methylprednisolone 4 mg tablets in 4 mg PO DIRECTED 6 days #21 tabs 12/09/23 a dose pack dicyclomine 10 mg capsule 20 mg (2 x 10 mg) PO TID abdominal 02/24/24 spasm #18 caps nitrofurantoin 100 mg PO BID 5 days #10 caps 02/24/24 monohydrate/macrocrystals 100 mg capsule (Macrobid) oxycodone 5 mg tablet 5 mg PO Q6H PRN pain 2 days #8 tabs 02/25/24 Allergies Allergy/AdvReac Type Severity Reaction Status Date / Time No Known Allergies Allergy Verified 02/25/24 08:45 [facility] Disclaimer: The information contained in this section may have been updated after the patient was seen, as this information can be updated by other users. Medical History Anxiety Irregular periods/menstrual cycles No significant past medical history Surgical History History of laparoscopic cholecystectomy Social History Smoking Status: Never smoker second hand exposure: No alcohol intake: never substance use type: denies use current occupational status: student Travel in the last 8 weeks: None household members: family housing: house lives independently: No marital status: single education level: high school current occupational exposures/hazards: No caffeine: No do you feel safe at home: Yes victim of physical abuse: No victim of emotional abuse: No victim of sexual abuse: No would you like helpful sources: No ROS Obtained: Yes All systems reviewed & no additional complaints except as documented Physical Exam General General appearance: alert and in no apparent distress Head Head exam: atraumatic and normocephalic Eye Eye exam: Present normal appearance, PERRL and EOMI ENT ENT exam: Present normal oropharynx and mucous membranes moist Neck Neck exam: Present full ROM; Absent meningismus Respiratory Respiratory exam: Absent respiratory distress, wheezes, stridor or accessory muscle use Cardiovascular Cardiovascular exam: Present normal rhythm Abdominal Exam Abdominal exam: Present soft and tenderness (Lower abdomen); Absent distention, guarding, rebound or rigidity Neurological Exam Neurological exam: Present alert, oriented X3 and CN II-XII intact; Absent motor sensory deficit Psychiatric Psychiatric exam: Present normal affect and normal mood Skin Skin exam: Present warm and dry Medical Decision Making Medical Records Medical records reviewed: Yes I reviewed the patient's medical records. [facility] Inquiry Pt receiving controlled substance: No [place] was queried for this patient: No Vital Signs: 02/25/24 08:36 02/25/24 08:40 02/25/24 10:33 Temperature 98.7 F Temperature Source Oral Pulse Rate 78 66 Pulse Rate [Right Brachial] 78 Respiratory Rate 18 Blood Pressure 104/60 L 117/78 Blood Pressure [Right Arm] 104/60 L Blood Pressure Mean 74 Blood Pressure Mean [Right Arm] 74 Blood Pressure Source [Right Arm] Automatic Cuff Blood Pressure Position [Right Arm] Sitting 02 Sat by Pulse Oximetry 100 100 99 Oxygen Delivery Method Room Air Room Air Lab Data Lab Results 02/25/24 08:49: WBC 6.3 D, RBC 4.72, Hgb 13.7, Hct 41.7, MCV 88.4, MCH 29.1, MCHC 32.9, RDW 13.3, Plt Count 283, MPV 7.5, Neut % (Auto) 45.2, Lymph % (Auto) 44.9, [place] % (Auto) 6.5, Eos % (Auto) 2.2, Baso % (Auto) 1.1, Neut # (Auto) 2.9, Lymph # (Auto) 2.8, [place] # (Auto) 0.4, Eos # (Auto) 0.1, Baso # (Auto) 0.1, Sodium 141, Potassium 4.0, Chloride 108 H, Carbon Dioxide 28, Anion Gap 9.0, BUN 12, Creatinine 1.00, Estimated Creat Clear 90, Estimated GFR 71, Est GFR ( Amer) 86, Glucose 88, Calcium 9.4, Total Bilirubin 2.1 H, AST 56 H, ALT 98 H, Alkaline Phosphatase 60, Total Protein 6.7, Albumin 3.9 D, Globulin 2.8, Albumin/Globulin Ratio 1.4 02/25/24 08:49 02/25/24 08:49 Orders (Tests/Meds): ED MEDICATIONS Generic Name Dose Route Start Last Admin Trade Name Freq PRN Reason Stop Dose Admin Lactated Ringer's 1,000 mls @ 999 mls/hr 02/25/24 12:26 02/25/24 12:30 Lactated Ringer's 1000 Ml Bag IV 02/25/24 13:26 999 mls/hr .Q1H1M ONE Administration Discontinued Medications Generic Name Dose Route Start Last Admin Trade Name Freq PRN Reason Stop Dose Admin Acetaminophen 1,000 mg 02/25/24 12:26 02/25/24 12:30 Acetaminophen 1,000mg/100ml Vial IV 02/25/24 12:27 1,000 mg ONCE ONE Administration Hydromorphone HCl 1 mg 02/25/24 10:14 02/25/24 10:38 Hydromorphone 2mg/Ml Syringe IV 02/25/24 10:15 1 mg ONCE ONE Administration Ketorolac Tromethamine 30 mg 02/25/24 08:42 02/25/24 09:03 Ketorolac 30mg/Ml Vial IV 02/25/24 08:43 30 mg ONCE ONE Administration Morphine Sulfate 4 mg 02/25/24 08:41 Morphine 4mg/Ml Syringe IV 02/25/24 08:42 ONCE ONE Ondansetron HCl 4 mg 02/25/24 08:41 02/25/24 09:03 Ondansetron 4mg/2ml Vial IV 02/25/24 08:42 4 mg ONCE ONE Administration Oxycodone HCl 5 mg 02/25/24 13:11 Oxycodone 5mg Immediate Release Tablet PO 02/25/24 13:12 ONCE ONE ORDERS Category Date Time Status CBC w/Auto Diff [Complete Blood Count Auto Diff] Stat Lab 02/25/24 08:49 Completed CMP [Comprehensive Metabolic Panel] Stat Lab 02/25/24 08:49 Completed Medical Decision Narrative: 18-year-old female with past medical history significant for irregular menstrual cycles, anxiety, presents today for evaluation concerning lower abdominal pain which she states has been present since yesterday however uncontrolled. She was seen in the ED yesterday where she had CT imaging that did not show any acute abnormalities. She had a transvaginal ultrasound that revealed findings concerning for PCOS. Has not been able to follow-up with [facility] as of yet. Was given morphine and Toradol in the ED and was able be discharged with improved pain however pain has returned. On assessment she was in medically stable and in no acute distress. Afebrile. She did have tenderness palpation in the lower abdomen without rebound or guarding. Otherwise exam is unremarkable. Diagnoses include but limited to PCOS, uncontrolled pain, among others. I did review patient's chart and results from yesterday. Her CT scan did not show any acute abnormalities. Transvaginal ultrasound did reveal findings concerning for PCOS morphology. Her lab workup today has been nonactionable. She continues to have pain after Toradol and Dilaudid. I also gave her IV Tylenol and on reassessment she stated that her pain was somewhat improved. I did speak to [facility] and discussed management and they have noted that they can see patient in the morning in office to further assess. They did recommend sending patient home with pain medications to further assist. I have ordered for oxycodone. I discussed ED workup and results and current plan with patient/mother and they were agreeable. Provided with return precautions. Subsequent discharged home in medically stable and in no acute distress. Critical Care Critical Care Time Critical Care Time: No
[2024-02-25] MEDS: KETOROLAC 30MG/ML VIAL 30 MG IV (09:03)
[2024-02-25] MEDS: ONDANSETRON 4MG/2ML VIAL 4 MG IV (09:03)
[2024-02-25 09:08] LABS: Basophils # 0.1 K/mm3 (0-0.2); Basophils % 1.1 % (0.1-2.0); Eosinophils # 0.1 K/mm3 (0.0-0.4); Eosinophils % 2.2 % (0.1-12.0); Hematocrit 41.7 % (37.0-47.0); Hemoglobin 13.7 g/dL (12.2-16.2); Lymphocytes # 2.8 K/mm3 (0.7-4.5); Lymphocytes % 44.9 % (10-50); Mean Corpuscular HGB Conc 32.9 g/dL (31.8-35.4); Mean Corpuscular Hemoglobin 29.1 pg (27.0-31.2); Mean Corpuscular Volume 88.4 fl (81-99); Mean Platelet Volume 7.5 fl (7.4-10.4); Monocytes # 0.4 K/mm3 (0.1-1.0); Monocytes % 6.5 % (1.7-9.3); Neutrophils # 2.9 K/mm3 (1.8-7.8); Neutrophils % 45.2 % (37.0-80.0); Platelet Count 283 K/mm3 (142-424); Red Blood Count 4.72 M/mm3 (4.20-5.40); Red Cell Distribution Width 13.3 % (11.5-17.5); White Blood Count 6.3 K/mm3 (4.5-13.0)
[2024-02-25 09:22] LABS: Chloride 108 mmol/L (98-107); Sodium 141 mmol/L (136-145)
[2024-02-25 09:24] LABS: Blood Urea Nitrogen 12 mg/dl (7-17); Creatinine Clearance Estimated 90 mL/min (50-200); Estimated Glomerular Filt Rate 71 ml/min (>60); GFR (African American) 86 ML/MIN (>60)
[2024-02-25 09:25] LABS: Alanine Aminotransferase 98 U/L (12-78); Albumin Level 3.9 g/dl (3.5-5.0); Albumin/Globulin Ratio 1.4 (1.1-1.8); Alkaline Phosphatase 60 U/L (38-126); Aspartate Amino Transferase 56 U/L (14-36); Bilirubin,Total 2.1 mg/dl (0.2-1.3); Calcium 9.4 mg/dl (8.4-10.2); Carbon Dioxide 28 mmol/L (22.0-30.0); Globulin 2.8 g/dL (1.3-3.2); Glucose 88 mg/dl (74-100); Total Protein,Serum 6.7 g/dl (6.3-8.2)
[2024-02-25 10:33] VITALS: BP 117/78; PULSE 66; O2SAT 99
[2024-02-25] MEDS: HYDROMORPHONE 2MG/ML SYRINGE 1 MG IV (10:38)
--- NOTE | 2024-02-25 10:39 | PC.NURSE ---
Rounded on pt and replaced hemodynamic monitoring, call light within reach.
[2024-02-25] MEDS: ACETAMINOPHEN 1,000MG/100ML VIAL 1000 MG IV (12:30)
[2024-02-25] MEDS: LACTATED RINGERS 1000ML 1,000 ML 999 ML IV (12:30)
[2024-02-25] MEDS: OXYCODONE 5MG IMMEDIATE RELEASE TABLET 5 MG PO (13:15)
[2024-02-25 13:23] VITALS: BP 136/70; PULSE 70; RESP 20; TEMP 36.7; O2SAT 97
== END 2024-02-25 13:24 | disposition home or self-care (01) ==
PROVIDERS: Emergency Provider Emergency Medicine; PCP Internal Medicine Adolescent Medicine
DX: R10.30 Lower abdominal pain, unspecified (principal); R11.0 Nausea
CPT/HCPCS: 80053; 85025; 96361; 96374; 96375; 99285; J0131; J2405

== ENCOUNTER 2024-02-25 14:24 | Outpatient (CLI) | payer BC, SELFPAY ==
--- NOTE | 2024-02-25 14:30 | US_ITS ---
PROCEDURE: US TRANSVAGINAL CLINICAL INDICATION: ovarian, and pelvic pain COMPARISON: US US TRANSVAGINAL from 02/24/[address] ABDOMEN PELVIS W CON from 02/24/2024 FINDINGS: Transvaginal sonographic images of the pelvis were obtained. UTERUS: 6.5cm x 4.3cmx 3.3cm anteverted with a combined endometrial thickness of 3.7mm. There is a small amount of fluid in the cervix. LEFT OVARY: 3.9 cmx1.9 cmx1.9cm with a volume of 7.4ml. The left ovary has multiple follicles consistent with a polycystic ovary. RIGHT OVARY: 3.3cmx 3.1cmx1.3cm with a volume of 6.9ml. There are multiple follicles in the right ovary. The largest measures 1.4 cm. Both ovaries are seen and appear polycystic. Doppler flow to both ovaries are seen. There is trace fluid in the cul-de-sac. IMPRESSION: 1. Anteverted uterus normal in shape and size. 2. The endometrium is thin. There is a small amount of fluid in the cervical canal. 3. Both ovaries are seen and appear polycystic. 4. There is a dominant follicle in the right ovary measuring 1.4 cm. 5. Trace fluid cul-de-sac. 6. No change from ultrasound done yesterday. Dictated by: Andrea Salas MD 02/25/2024 19:15 Andrea Saals MD in [facility] 02/25/2024 19:15
== END 2024-02-25 23:59 | disposition home or self-care (01) ==
LOC: RAD 14:25
PROVIDERS: PCP Internal Medicine Adolescent Medicine; Visit Provider Obstetrics & Gynecology
DX: R10.2 Pelvic and perineal pain (principal); E28.2 Polycystic ovarian syndrome
CPT/HCPCS: 76830

== ENCOUNTER 2024-02-26 09:55 | Outpatient (CLI) | payer BC, SELFPAY ==
[2024-02-26 10:23] LABS: Basophils # 0.1 K/mm3 (0-0.2); Basophils % 0.5 % (0.1-2.0); Eosinophils % 0.4 % (0.1-12.0); Hematocrit 41.3 % (37.0-47.0); Hemoglobin 13.4 g/dL (12.2-16.2); Lymphocytes % 10.2 % (10-50); Mean Corpuscular HGB Conc 32.6 g/dL (31.8-35.4); Mean Corpuscular Hemoglobin 28.4 pg (27.0-31.2); Mean Corpuscular Volume 87.3 fl (81-99); Mean Platelet Volume 7.4 fl (7.4-10.4); Monocytes # 0.3 K/mm3 (0.1-1.0); Monocytes % 2.9 % (1.7-9.3); Neutrophils # 8.6 K/mm3 (1.8-7.8); Platelet Count 305 K/mm3 (142-424); Red Blood Count 4.73 M/mm3 (4.20-5.40); Red Cell Distribution Width 13.1 % (11.5-17.5)
[2024-02-26 10:32] LABS: Chloride 108 mmol/L (98-107); Potassium 4.3 mmoL/L (3.5-5.1); Sodium 140 mmol/L (136-145)
[2024-02-26 10:34] LABS: Amylase 73 U/L (30-110); Blood Urea Nitrogen 12 mg/dl (7-17); Estimated Glomerular Filt Rate 80 ml/min (>60); GFR (African American) 97 ML/MIN (>60)
[2024-02-26 10:35] LABS: Alanine Aminotransferase 80 U/L (12-78); Albumin Level 4.3 g/dl (3.5-5.0); Albumin/Globulin Ratio 1.5 (1.1-1.8); Alkaline Phosphatase 66 U/L (38-126); Anion Gap 9.3 mEq/L (5-15); Aspartate Amino Transferase 42 U/L (14-36); Bilirubin,Total 1.6 mg/dl (0.2-1.3); Calcium 9.5 mg/dl (8.4-10.2); Carbon Dioxide 27 mmol/L (22.0-30.0); Globulin 2.8 g/dL (1.3-3.2); Glucose 107 mg/dl (74-100); Lipase 62 U/L (23-300); Total Protein,Serum 7.1 g/dl (6.3-8.2)
[2024-02-26 10:47] LABS: MANUAL DIFFERENTIAL MANUAL DIFFERENTIAL (MANUAL DIFF)
[2024-02-26 12:15] LABS: Eosinophils % 1 % (0-3); Lymphocytes % 10 % (10-50); Monocytes % 3 % (2-9); Neutrophils % 86 % (42-76); Platelet Estimate Normal; RBC Morphology Normal; Total Cells Counted 100
== END 2024-02-26 23:59 | disposition home or self-care (01) ==
LOC: LAB 09:55
PROVIDERS: PCP Nurse Practitioner Family; Visit Provider Nurse Practitioner Family
DX: R10.30 Lower abdominal pain, unspecified (principal); R74.01 Elevation of levels of liver transaminase levels
CPT/HCPCS: 36415; 80053; 82150; 83690; 85007; 85025

== ENCOUNTER 2024-03-16 13:24 | Emergency (ER) | payer BC, SELFPAY ==
[2024-03-16 13:25] VITALS: BP 115/70; PULSE 129; RESP 20; TEMP 36.8; O2SAT 96; BMI 23.3
--- NOTE | 2024-03-16 13:41 | CT_ITS ---
PROCEDURE INFORMATION: Exam: CT Abdomen And Pelvis With Contrast Exam date and time: 03/16/2024 3:03 PM Age: 18 years old Clinical indication: Abdominal pain; Generalized; Additional info: Severe intractable suprapubic pain TECHNIQUE: Imaging protocol: Computed tomography of the abdomen and pelvis with contrast. Total images: 290 Radiation optimization: All CT scans at this facility use at least one of these dose optimization techniques: automated exposure control; mA and/or kV adjustment per patient size (includes targeted exams where dose is matched to clinical indication); or iterative reconstruction. Contrast material: ISOVUE; Contrast volume: 75 ml; Contrast route: IV; COMPARISON: CT ABDOMEN PELVIS W CON 02/24/2024 4:42 PM FINDINGS: Diaphragm: Small hiatal hernia. Liver: Normal. No mass. Gallbladder and bile ducts: Status post cholecystectomy. Pancreas: Normal. No ductal dilation. Spleen: Calcification noted within the spleen. Adrenal glands: Normal. No mass. Kidneys and ureters: Normal. No hydronephrosis. Stomach and bowel: Mild thickening of the ham of the rectosigmoid colon consistent with mild colitis. Large amount of stool is present throughout the colon. Appendix: No evidence of appendicitis. Intraperitoneal space: Normal. No significant fluid collection. Vasculature: Unremarkable. No abdominal aortic aneurysm. Lymph nodes: Unremarkable. No enlarged lymph nodes. Urinary bladder: Unremarkable as visualized. Reproductive: Left adnexal cyst is present measuring 2.8 cm. Further evaluation with pelvic ultrasound is recommended, as clinically warranted. Bones/joints: Unremarkable. No acute fracture. Soft tissues: Soft tissues are normal. IMPRESSION: 1. Mild thickening of the ham of the rectosigmoid colon consistent with mild colitis. 2. Small hiatal hernia. 3. Left adnexal cyst is present measuring 2.8 cm. Further evaluation with pelvic ultrasound is recommended, as clinically warranted. 4. Large amount of stool is present throughout the colon.
--- NOTE | 2024-03-16 13:44 | HMH.EDGENADL ---
Discharge Plan Disposition Patient Disposition: Home, Self-Care Condition: Good Prescriptions Prescriptions: New naproxen 500 mg tablet 500 mg PO BID PRN (Reason: pain) Qty: 20 0RF No Action escitalopram oxalate 10 mg tablet 10 mg PO DAILY Referrals Follow up/Referrals: Lakisha West MD [Referring] - See instructions Provider,MD Kiran [Referring] - See instructions Activity Restrictions/Add. Instructions Additional Instructions/Restrictions: Take naproxen as prescribed for pain and follow up with GI for continued evaluation and management. Return for any new or worsening symptoms. Clinical Impressions Clinical Impression: Lower abdominal pain, PCOS (polycystic ovarian syndrome) Instructions Patient Instructions: DI for Acute Abdominal Pain Discharge ED Provider: Lu Centeno General Adult HPI <Solo Aldana MD - Last Filed: 03/16/24 15:33> General Chief complaint: Abdominal Pain Stated complaint: abd pain, vomiting, unable to eat Time Seen by Provider: 03/16/24 13:27 Mode of Arrival: Wheelchair Source of Information: Patient Limitations: No Limitations Description of Symptoms (Recalled from ER Triage Doc. by RN): Patient complaint of lower abdomen pain that began early this morning. States she has also had N/V/D. History of Present Illness HPI narrative: Patient is a 18-year-old female with past medical history of PCOS, subacute lower abdominal pain, irregular menstrual cycles who presents emergency department for evaluation of repeat abdominal pain. Onset was acute, since 6 AM this morning, intractable, suprapubic. She has been evaluated twice in the emergency department for this and has gotten CT imaging of abdomen pelvis as well as transvaginal ultrasound which have only been remarkable for polycystic ovarian syndrome. 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 Pain is in the same location, same quality. She was supposed to follow-up on Sunday with gynecology here however unfortunately had to cancel her appointment. There is associated vomiting and nonbloody diarrhea, no other acute complaints at this time. Related Data Home Medications Medication Instructions Recorded Confirmed escitalopram oxalate 10 mg tablet 10 mg PO DAILY 10/22/23 03/12/24 Previous Rx's Medication Instructions Recorded naproxen 500 mg tablet 500 mg PO BID PRN pain #20 tabs 03/16/24 Allergies Allergy/AdvReac Type Severity Reaction Status Date / Time No Known Allergies Allergy Verified 03/12/24 09:40 PFSH <Solo Aldana MD - Last Filed: 03/16/24 15:33> FOR[facility]LY [facility], [facility] Disclaimer: The information contained in this section may have been updated after the patient was seen, as this information can be updated by other users. Medical History (Updated 03/16/24 @ 15:52 by Lu Centeno MD) PCOS (polycystic ovarian syndrome) Irregular periods/menstrual cycles Anxiety Surgical History History of laparoscopic cholecystectomy Social History Smoking Status: Never smoker second hand exposure: No alcohol intake: never substance use type: denies use current occupational status: student Travel in the last 8 weeks: None household members: family housing: house lives independently: No marital status: single education level: high school current occupational exposures/hazards: No caffeine: No do you feel safe at home: Yes victim of physical abuse: No victim of emotional abuse: No victim of sexual abuse: No would you like helpful sources: No <Solo Aldana MD - Last Filed: 03/16/24 15:33> ROS Obtained: Yes Systems reviewed as appropriate & no additional complaints except as documented Physical Exam <Solo Aldana MD - Last Filed: 03/16/24 15:33> General General appearance: alert and other (In distress) Head Head exam: atraumatic and normocephalic Eye Eye exam: Present PERRL ENT ENT exam: Present mucous membranes moist Neck Neck exam: Present normal inspection Chest Chest inspection: Present normal inspection and symmetric chest wall rise Respiratory Respiratory exam: Absent respiratory distress Cardiovascular Cardiovascular exam: Present regular rate and normal rhythm Abdominal Exam Abdominal exam: Present soft and tenderness (Suprapubic) Extremities Exam Extremities exam: Present normal inspection Neurological Exam Neurological exam: Present alert Skin Skin exam: Present warm and dry Medical Decision Making <Solo Aldana MD - Last Filed: 03/16/24 15:33> [facility] Inquiry Pt receiving controlled substance: No Vital Signs: 03/16/24 13:25 03/16/24 14:00 03/16/24 15:10 Temperature 98.3 F Temperature Source Oral Pulse Rate 98 H 102 H Pulse Rate [Radial] 129 H Respiratory Rate 20 22 Blood Pressure 107/69 L Blood Pressure [Right Arm] 115/70 Blood Pressure Mean [Right Arm] 85 Blood Pressure Source [Right Arm] Automatic Cuff Blood Pressure Position [Right Arm] Sitting 02 Sat by Pulse Oximetry 96 97 98 Oxygen Delivery Method Room Air Room Air Room Air Lab Data Lab Results 03/16/24 13:30: WBC 16.3 H, RBC 5.27, Hgb 15.5, Hct 46.3, MCV 87.8, MCH 29.3, MCHC 33.4, RDW 13.5, Plt Count 364, MPV 8.1, Neut % (Auto) 77.6, Lymph % (Auto) 14.9, [place] % (Auto) 5.7, Eos % (Auto) 1.3, Baso % (Auto) 0.5, Neut # (Auto) 12.6 H, Lymph # (Auto) 2.4, [place] # (Auto) 0.9, Eos # (Auto) 0.2, Baso # (Auto) 0.1, Total Counted 100, Neutrophils % (Manual) 60, Band Neutrophils % 18.0 H, Lymphocytes % (Manual) 17, Monocytes % (Manual) 5, Platelet Estimate Normal, RBC Morphology Normal, Sodium 140, Potassium 3.6, Chloride 106, Carbon Dioxide 21 L, Anion Gap 16.6 H, BUN 12, Creatinine 0.80, Estimated Creat Clear 112, Estimated GFR 91, Est GFR ( Amer) 111, Glucose 97, Calcium 9.9, Total Bilirubin 2.3 H, AST 46 H, ALT 57, Alkaline Phosphatase 77, Total Protein 8.3 H, Albumin 4.9, Globulin 3.4 H, Albumin/Globulin Ratio 1.4, Lipase 62, Serum HCG, Qual Negative, Urine Color Yellow, Urine Appearance Clear, Urine pH 5.5, Ur Specific [place] >= 1.030, Urine Protein Trace, Urine Glucose (UA) Negative, Urine Ketones Trace, Urine Blood Negative, Urine Nitrate Negative, Urine Bilirubin 1+ A, Urine Urobilinogen 0.2, Ur Leukocyte Esterase Negative, Urine RBC None, Urine WBC None, Ur Squamous Epith Cells 3-5, Urine Bacteria Trace 03/16/24 13:30 03/16/24 13:30 Orders (Tests/Meds): ED MEDICATIONS Discontinued Medications Generic Name Dose Route Start Last Admin Trade Name Freq PRN Reason Stop Dose Admin Acetaminophen 1,000 mg 03/16/24 13:41 03/16/24 14:04 Acetaminophen 1,000mg/100ml Vial IV 03/16/24 13:42 1,000 mg ONCE ONE Administration Dicyclomine HCl 10 mg 03/16/24 13:43 03/16/24 14:04 Dicyclomine 10mg Capsule PO 03/16/24 13:44 10 mg ONCE ONE Administration Droperidol 2.5 mg 03/16/24 13:41 03/16/24 14:04 Droperidol 5mg/2ml Vial IV 03/16/24 13:42 2.5 mg ONCE ONE Administration Lactated Ringer's 1,000 mls @ 999 mls/hr 03/16/24 13:41 03/16/24 14:04 Lactated Ringer's 1000 Ml Bag IV 03/16/24 14:41 999 mls/hr .Q1H1M ONE Administration Iopamidol 75 ml 03/16/24 15:08 03/16/24 15:09 Iopamidol-370 (76%);100ml Bottle IV 03/16/24 15:09 75 ml ONCE ONE Administration Ketorolac Tromethamine 30 mg 03/16/24 13:41 03/16/24 14:04 Ketorolac 30mg/Ml Vial IV 03/16/24 13:42 30 mg ONCE ONE Administration Sodium Chloride 10 ml 03/16/24 15:08 03/16/24 15:09 Sodium Chloride 0.9% 10ml Syr (Rad Only) IV 03/16/24 15:09 10 ml ONCE ONE Administration ORDERS Category Date Time Status CT abdomen pelvis w con Stat Cat Scan 03/16/24 13:41 Completed CBC w/Auto Diff [Complete Blood Count Auto Diff] Stat Lab 03/16/24 13:30 Completed CMP [Comprehensive Metabolic Panel] Stat Lab 03/16/24 13:30 Completed HCG Qualitative, Serum Stat Lab 03/16/24 13:30 Completed Lipase Stat Lab 03/16/24 13:30 Completed UA [Urinalysis and Microscopic] Stat Lab 03/16/24 13:30 Completed ECG Data Tracing #1: Independently interpreted by me, rate is 112, rhythm is regular, sinus tachycardia, axis is normal, no ST elevation in anatomical contiguous leads, QTc 373. Medical Decision Narrative: AllisonIn summary patient is a 18-year-old female with past medical history described above who presents emergency department for evaluation of abdominal pain. Patient is hemodynamically stable and appearing in pain upon arrival, tachycardic, afebrile. Differential diagnosis includes urinary tract infection, , functional abdominal pain, among others. Workup will be conducted with hematologic labs, urinalysis, CT abdomen pelvis IV contrast. Initial interventions include Tylenol, Toradol, droperidol, crystalloid bolus. Initial workup reviewed by me, leukocytosis of 16.3 which is nonspecific, remainder of hematologic labs are nonactionable, interpreted by me and not consistent with infection. hCG negative. CT imaging and repeat evaluation pending at time of transfer of care to the oncoming physician, Dr. Centeno. <Lu Centeno MD - Last Filed: 03/16/24 15:54> Medical Records Medical records reviewed: Yes I reviewed the patient's medical records. Vital Signs: 03/16/24 13:25 03/16/24 14:00 03/16/24 15:10 Temperature 98.3 F Temperature Source Oral Pulse Rate 98 H 102 H Pulse Rate [Radial] 129 H Respiratory Rate 20 22 Blood Pressure 107/69 L Blood Pressure [Right Arm] 115/70 Blood Pressure Mean [Right Arm] 85 Blood Pressure Source [Right Arm] Automatic Cuff Blood Pressure Position [Right Arm] Sitting 02 Sat by Pulse Oximetry 96 97 98 Oxygen Delivery Method Room Air Room Air Room Air Lab Data Lab results reviewed: Yes I reviewed the patient's lab results. Lab Results 03/16/24 13:30: WBC 16.3 H, RBC 5.27, Hgb 15.5, Hct 46.3, MCV 87.8, MCH 29.3, MCHC 33.4, RDW 13.5, Plt Count 364, MPV 8.1, Neut % (Auto) 77.6, Lymph % (Auto) 14.9, [place] % (Auto) 5.7, Eos % (Auto) 1.3, Baso % (Auto) 0.5, Neut # (Auto) 12.6 H, Lymph # (Auto) 2.4, [place] # (Auto) 0.9, Eos # (Auto) 0.2, Baso # (Auto) 0.1, Total Counted 100, Neutrophils % (Manual) 60, Band Neutrophils % 18.0 H, Lymphocytes % (Manual) 17, Monocytes % (Manual) 5, Platelet Estimate Normal, RBC Morphology Normal, Sodium 140, Potassium 3.6, Chloride 106, Carbon Dioxide 21 L, Anion Gap 16.6 H, BUN 12, Creatinine 0.80, Estimated Creat Clear 112, Estimated GFR 91, Est GFR ( Amer) 111, Glucose 97, Calcium 9.9, Total Bilirubin 2.3 H, AST 46 H, ALT 57, Alkaline Phosphatase 77, Total Protein 8.3 H, Albumin 4.9, Globulin 3.4 H, Albumin/Globulin Ratio 1.4, Lipase 62, Serum HCG, Qual Negative, Urine Color Yellow, Urine Appearance Clear, Urine pH 5.5, Ur Specific [place] >= 1.030, Urine Protein Trace, Urine Glucose (UA) Negative, Urine Ketones Trace, Urine Blood Negative, Urine Nitrate Negative, Urine Bilirubin 1+ A, Urine Urobilinogen 0.2, Ur Leukocyte Esterase Negative, Urine RBC None, Urine WBC None, Ur Squamous Epith Cells 3-5, Urine Bacteria Trace Orders (Tests/Meds): ED MEDICATIONS Discontinued Medications Generic Name Dose Route Start Last Admin Trade Name Freq PRN Reason Stop Dose Admin Acetaminophen 1,000 mg 03/16/24 13:41 03/16/24 14:04 Acetaminophen 1,000mg/100ml Vial IV 03/16/24 13:42 1,000 mg ONCE ONE Administration Dicyclomine HCl 10 mg 03/16/24 13:43 03/16/24 14:04 Dicyclomine 10mg Capsule PO 03/16/24 13:44 10 mg ONCE ONE Administration Droperidol 2.5 mg 03/16/24 13:41 03/16/24 14:04 Droperidol 5mg/2ml Vial IV 03/16/24 13:42 2.5 mg ONCE ONE Administration Lactated Ringer's 1,000 mls @ 999 mls/hr 03/16/24 13:41 03/16/24 14:04 Lactated Ringer's 1000 Ml Bag IV 03/16/24 14:41 999 mls/hr .Q1H1M ONE Administration Iopamidol 75 ml 03/16/24 15:08 03/16/24 15:09 Iopamidol-370 (76%);100ml Bottle IV 03/16/24 15:09 75 ml ONCE ONE Administration Ketorolac Tromethamine 30 mg 03/16/24 13:41 03/16/24 14:04 Ketorolac 30mg/Ml Vial IV 03/16/24 13:42 30 mg ONCE ONE Administration Sodium Chloride 10 ml 03/16/24 15:08 03/16/24 15:09 Sodium Chloride 0.9% 10ml Syr (Rad Only) IV 03/16/24 15:09 10 ml ONCE ONE Administration ORDERS Category Date Time Status CT abdomen pelvis w con Stat Cat Scan 03/16/24 13:41 Completed CBC w/Auto Diff [Complete Blood Count Auto Diff] Stat Lab 03/16/24 13:30 Completed CMP [Comprehensive Metabolic Panel] Stat Lab 03/16/24 13:30 Completed HCG Qualitative, Serum Stat Lab 03/16/24 13:30 Completed Lipase Stat Lab 03/16/24 13:30 Completed UA [Urinalysis and Microscopic] Stat Lab 03/16/24 13:30 Completed Medical Decision Narrative: AllisonIn summary patient is a 18-year-old female with past medical history described above who presents emergency department for evaluation of abdominal pain. Patient is hemodynamically stable and appearing in pain upon arrival, tachycardic, afebrile. Differential diagnosis includes urinary tract infection, , functional abdominal pain, among others. Workup will be conducted with hematologic labs, urinalysis, CT abdomen pelvis IV contrast. Initial interventions include Tylenol, Toradol, droperidol, crystalloid bolus. Initial workup reviewed by me, leukocytosis of 16.3 which is nonspecific, remainder of hematologic labs are nonactionable, interpreted by me and not consistent with infection. hCG negative. CT imaging and repeat evaluation pending at time of transfer of care to the oncoming physician, Dr. Centeno. I assumed care of patient pending CT scan. CT imaging shows only a mild colitis, ovarian cyst which she has already had 2 transvaginal ultrasounds that were reassuring and PCOS history. Her bilirubin is 2.3 which is consistent with her prior lab values available in the system. On reevaluation she is feeling improved and requesting discharge for which she is stable and appropriate. Discussed symptomatic management and will prescribe naproxen to preferred pharmacy, will also provide GI follow-up. Patient agreeable to plan and discussed return precautions which she is also agreeable. Discharged in stable condition. Critical Care <Solo Aldana MD - Last Filed: 03/16/24 15:33> Critical Care Time Critical Care Time: No
--- NOTE | 2024-03-16 13:54 | ECG_ITS ---
APPROVED REPORT Exam: Resting ECG HR:112 bpm ECG Measurements Heart Rate 112 AXES IA 148 P 78 QRSd 98 QRS 83 QT 307 T 67 QTc 373 Conclusion SINUS TACHYCARDIA POSSIBLE RIGHT VENTRICULAR CONDUCTION DELAY [RSR (QR) IN V1/V2] Electronically signed by : MADELYN MCKENNA, 03/17/2024 03:40:46
[2024-03-16 14:00] VITALS: PULSE 98; O2SAT 97
[2024-03-16] MEDS: LACTATED RINGERS 1000ML 1,000 ML 999 ML IV (14:04)
[2024-03-16] MEDS: droPERidol 5MG/2ML VIAL 2.5 MG IV (14:04)
[2024-03-16] MEDS: KETOROLAC 30MG/ML VIAL 30 MG IV (14:04)
[2024-03-16] MEDS: ACETAMINOPHEN 1,000MG/100ML VIAL 1000 MG IV (14:04)
[2024-03-16] MEDS: DICYCLOMINE 10MG CAPSULE 10 MG PO (14:04)
[2024-03-16 14:11] LABS: Basophils # 0.1 K/mm3 (0-0.2); Basophils % 0.5 % (0.1-2.0); Eosinophils # 0.2 K/mm3 (0.0-0.4); Eosinophils % 1.3 % (0.1-12.0); Hematocrit 46.3 % (37.0-47.0); Hemoglobin 15.5 g/dL (12.2-16.2); Lymphocytes # 2.4 K/mm3 (0.7-4.5); Lymphocytes % 14.9 % (10-50); Mean Corpuscular HGB Conc 33.4 g/dL (31.8-35.4); Mean Corpuscular Hemoglobin 29.3 pg (27.0-31.2); Mean Corpuscular Volume 87.8 fl (81-99); Mean Platelet Volume 8.1 fl (7.4-10.4); Monocytes # 0.9 K/mm3 (0.1-1.0); Monocytes % 5.7 % (1.7-9.3); Neutrophils # 12.6 K/mm3 (1.8-7.8); Neutrophils % 77.6 % (37.0-80.0); Platelet Count 364 K/mm3 (142-424); Red Blood Count 5.27 M/mm3 (4.20-5.40); Red Cell Distribution Width 13.5 % (11.5-17.5); White Blood Count 16.3 K/mm3 (4.5-13.0)
[2024-03-16 14:17] LABS: HCG Qualitative, Serum Negative (Negative); Microscopic, Urine URINE MICROSCOPIC (MICROSCOPIC)
--- NOTE | 2024-03-16 14:18 | PC.NURSE ---
pt left UA, sent to lab.
[2024-03-16 14:19] LABS: MANUAL DIFFERENTIAL MANUAL DIFFERENTIAL (MANUAL DIFF)
[2024-03-16 14:20] LABS: Alanine Aminotransferase 57 U/L (12-78); Albumin Level 4.9 g/dl (3.5-5.0); Albumin/Globulin Ratio 1.4 (1.1-1.8); Alkaline Phosphatase 77 U/L (38-126); Anion Gap 16.6 mEq/L (5-15); Aspartate Amino Transferase 46 U/L (14-36); Bilirubin,Total 2.3 mg/dl (0.2-1.3); Blood Urea Nitrogen 12 mg/dl (7-17); Calcium 9.9 mg/dl (8.4-10.2); Carbon Dioxide 21 mmol/L (22.0-30.0); Chloride 106 mmol/L (98-107); Creatinine Clearance Estimated 112 mL/min (50-200); Estimated Glomerular Filt Rate 91 ml/min (>60); GFR (African American) 111 ML/MIN (>60); Globulin 3.4 g/dL (1.3-3.2); Glucose 97 mg/dl (74-100); Lipase 62 U/L (23-300); Potassium 3.6 mmoL/L (3.5-5.1); Sodium 140 mmol/L (136-145); Total Protein,Serum 8.3 g/dl (6.3-8.2)
[2024-03-16 14:21] LABS: Appearance,Urine CLEAR (Clear); Blood, Urine Negative (Negative); Color,Urine YELLOW (Yellow); Glucose,Urine (UA) Negative (Negative); Ketones,Urine TRACE (Negative); Leukocyte Esterase,Urine Negative (Negative); Nitrate,Urine Negative (Negative); PH,Urine 5.5 (5.0-8.5); Protein,Urine TRACE (Negative); Specific Gravity, Urine >= 1.030 (1.005-1.030); Urobilinogen,Urine 0.2 EU/dl (0.2)
[2024-03-16 14:42] LABS: Bilirubin,Urine 1+ (Negative)
[2024-03-16 14:43] LABS: Bacteria,Urine Trace /lpf
--- NOTE | 2024-03-16 15:00 | PC.NURSE ---
PT gone to CT
--- NOTE | 2024-03-16 15:07 | PC.NURSE ---
Pt returned from CT
[2024-03-16] MEDS: IOPAMIDOL-370 (76%);100ML BOTTLE 75 ML IV (15:09)
[2024-03-16] MEDS: SODIUM CHLORIDE 0.9% 10ML SYR (RAD ONLY) 10 ML IV (15:09)
[2024-03-16 15:10] VITALS: BP 107/69; PULSE 102; RESP 22; O2SAT 98
[2024-03-16 15:16] LABS: Lymphocytes % 17 % (10-50); Monocytes % 5 % (2-9); Neutrophils % 60 % (42-76); Total Cells Counted 100
[2024-03-16 15:21] LABS: Platelet Estimate Normal; RBC Morphology Normal
[2024-03-16 15:57] VITALS: BP 105/65; PULSE 90; RESP 21; TEMP 36.7; O2SAT 97
== END 2024-03-16 16:02 | disposition home or self-care (01) ==
PROVIDERS: Emergency Medicine; Emergency Provider Emergency Medicine; PCP Internal Medicine Adolescent Medicine
DX: R10.30 Lower abdominal pain, unspecified (principal); E28.2 Polycystic ovarian syndrome; R00.0 Tachycardia, unspecified; R11.2 Nausea with vomiting, unspecified
CPT/HCPCS: 74177; 80053; 81001; 83690; 84703; 85007; 85025; 93005; 96361; 96374; 96375; 99285; J0131; J1790; Q9967

== ENCOUNTER 2024-09-07 18:24 | Emergency (ER) | payer BC, SELFPAY ==
[2024-09-07 18:35] VITALS: BP 116/66; PULSE 126; RESP 20; TEMP 37.9; O2SAT 99; BMI 25.1
--- NOTE | 2024-09-07 18:43 | ED_ITS ---
Discharge Plan Disposition Patient Disposition: Home, Self-Care Condition: Good Prescriptions Prescriptions: New amoxicillin 875 mg tablet 875 mg PO Q12H Qty: 20 0RF ondansetron 4 mg tablet,disintegrating 4 mg PO Q8H PRN (Reason: nausea and vomiting) Qty: 12 0RF No Action norethindrone-ethin estradiol 0.4-35 mg-mcg Tablet 1 tab PO DAILY Referrals Follow up/Referrals: Jhony Rosa MD [Primary Care Provider] - See instructions Activity Restrictions/Add. Instructions Additional Instructions/Restrictions: *Monitor Temp, Over the counter Motrin or Tylenol as directed/as needed Tylenol every 4 hours and Motrin every 6 hours (as long as your family doctor has told you that you can take it) for fever or pain. and straight to ER if unable to lower temp less than 101.0 after medication given *Warm salt water gargles may help to soothe the throat *Throat Lozenges? *Warm fluids like tea with honey may help to soothe the throat? *Sleep elevated *Humidifier/Vaporizer *If you did not take Penicillin shot or was unable to, start taking antibiotic immediately and make sure that you take it for the FULL length of time although you should start to feel better in 24-48 hours *change toothbrush and toothpaste 24-48 hours after starting to take antibiotics so you do not reinfect yourself Monitor Temp. Tylenol and/or Ibuprofen as needed. ER if fever is no less than 101 despite alternating Tylenol and Ibuprofen * Encourage fluids, water, Gatorade, powerade, pedialyte if /toddler/or child *Cold fluids, popsicles and ice cream may feel good on his throat Follow up IMMEDIATELY for new or worsening symptoms or no Noticeable improvement over the next 48-72 hours. 911 for difficulty breathing or swallowing Clinical Impressions Clinical Impression: Strep throat Stand Alone Forms Stand Alone Forms: Work/School Release Instructions Patient Instructions: Strep Throat, DI for Strep Throat Print Language Print Language: British Discharge ED Provider: Emily Hercules [facility] [place] HPI General Stated complaint: fever,vomiting,abdomin pain ,sore throat Mode of Arrival: Ambulatory Source of Information: Patient Limitations: No Limitations Time Seen by Provider: 09/07/24 18:43 Description of Symptoms (Recalled from Triage Doc. 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 and she started with sore throat, body aches, chills, headache, fever, nausea and diarrhea States today she has continued to not feel well and her throat was hurting her worse so she came in to get checked Related Data Home Medications ?Medication ?Instructions ?Recorded ?Confirmed norethindrone 0.4 mg-ethinyl 1 tab PO DAILY 09/07/24 09/07/24 estradiol 35 mcg tablet Previous Rx's ?Medication ?Instructions ?Recorded amoxicillin 875 mg tablet 875 mg PO Q12H #20 tabs 09/07/24 ondansetron 4 mg disintegrating 4 mg PO Q8H PRN nausea and 09/07/24 tablet vomiting #12 tabs Allergies Allergy/AdvReac Type Severity Reaction Status Date / Time No Known Allergies Allergy Verified 03/12/24 09:40 Worker's Comp Is this a Worker's Comp case?: [facility] Disclaimer: The information contained in this section may have been updated after the patient was seen, as this information can be updated by other users. Medical History PCOS (polycystic ovarian syndrome) Irregular periods/menstrual cycles Anxiety Surgical History History of laparoscopic cholecystectomy Social History Smoking Status: Never smoker second hand exposure: No alcohol intake: never substance use type: denies use current occupational status: student Travel in the last 8 weeks: None household members: family housing: house lives independently: No marital status: single education level: high school current occupational exposures/hazards: No caffeine: No do you feel safe at home: Yes victim of physical abuse: No victim of emotional abuse: No victim of sexual abuse: No would you like helpful sources: No ROS Obtained: Yes All systems reviewed & no additional complaints except as docu mented and Yes Systems reviewed as appropriate & no additional complaints except as documented Constitutional Constitutional: Reports system reviewed and no additional complaints, except as documented, Reports as per HPI, Reports body ache, Reports chills, Reports fever(s) and Reports headache(s) ENT Ears, Nose, Mouth, and Throat: Reports system reviewed and no additional complaints, except as documented, Reports as per HPI, Reports headache(s) and Reports sore throat Cardiovascular Cardiovascular: Reports system reviewed and no additional complaints, except as documented and Reports as per HPI Respiratory Respiratory: Reports system reviewed and no additional complaints, except as documented and Reports as per HPI Gastrointestinal Gastrointestingal: Reports system reviewed and no additional complaints, except as documented, as per HPI, diarrhea and nausea Neurologic Neurologic: Reports headache(s) Physical Exam General General appearance: alert and in no apparent distress ENT ENT exam: Present mucous membranes moist Expanded ENT Exam Nose exam: Absent sinus tenderness Throat exam: Present tonsillar erythema (worse on left side) and tonsillar exudate Respiratory Respiratory exam: Present normal lung sounds bilaterally; Absent respiratory di stress or wheezes Cardiovascular Cardiovascular exam: Present regular rate, normal rhythm and tachycardia Abdominal Exam Abdominal exam: Present soft and normal bowel sounds; Absent distention or tenderness Neurological Exam Neurological exam: Present alert, oriented X3 and normal gait Medical Decision Making Medical Records Screening: Per USPSTF and CDC recommendations, given the prevalence of disease in our region, it is our hospital?s policy to screen for HIV and viral Hepatitis for all patients aged 18 and over and those with ongoing risk factors. [facility] Inquiry Pt receiving controlled substance: No [place] was queried for this patient: No Vital Signs: 09/07/24 18:35 Temperature 100.2 F H Temperature Source Oral Pulse Rate [Left Brachial] 126 H Respiratory Rate 20 Blood Pressure [Left Arm] 116/66 Blood Pressure Mean [Left Arm] 82 Blood Pressure Source [Left Arm] Automatic Cuff Blood Pressure Position [Left Arm] Sitting 02 Sat by Pulse Oximetry 99 Oxygen Delivery Method Room Air Lab Data Lab results reviewed: Yes I reviewed the patient's lab results.
[2024-09-07 18:49] LABS: UTC Strep Screen (Rapid) Positive (Negative)
[2024-09-07] MEDS: ONDANSETRON 4MG ODT 4 MG SL (18:53)
[2024-09-07 18:58] LABS: UTC Influenza A Antigen Negative (Negative); UTC Influenza B Antigen Negative (Negative)
[2024-09-07 19:01] VITALS: BP 116/66; PULSE 126; RESP 20; TEMP 37.9; O2SAT 99
[2024-09-07] MEDS: AMOXICILLIN 500MG CAPSULE 500 MG PO (19:05)
== END 2024-09-07 19:05 | disposition home or self-care (01) ==
PROVIDERS: Emergency Provider Nurse Practitioner; PCP Internal Medicine Adolescent Medicine
DX: J02.0 Streptococcal pharyngitis (principal)
CPT/HCPCS: 87804; 87880; 99213; G0381; Q0162

== ENCOUNTER 2024-09-23 08:33 | Outpatient (CLI) | payer BC, SELFPAY ==
--- NOTE | 2024-09-23 08:35 | CT_ITS ---
FINAL REPORT CLINICAL HISTORY: RLQ PAIN COMPARISON: 03/16/2024 FINDINGS: CT OF THE ABDOMEN AND PELVIS WITH CONTRAST Axial CT images of the abdomen and pelvis were obtained after the administration of IV contrast. Coronal and sagittal reformatted images were also obtained and reviewed. This study was performed with techniques to keep radiation doses as low as reasonably achievable (ALARA). Individualized dose reduction techniques using automated exposure control or adjustment of mA and/or kV according to the patient's size were employed. Abdomen: The lung bases are clear. The heart is normal in size. The liver has an unremarkable appearance, without evidence of mass or biliary ductal dilatation. The spleen is unremarkable. No adrenal mass is present. The pancreas has an unremarkable appearance. The kidneys are normal, without evidence of mass or hydronephrosis. The aorta is normal in caliber. There is no free fluid or adenopathy. No mass or abnormal fluid collection is seen. There are nonspecific loops of fluid-filled small bowel, that may represent an ileus or enteritis. Pelvis: The appendix is normal in appearance. The urinary bladder is unremarkable. No inflammatory process is seen. There is no evidence of mass or adenopathy. There is no evidence of bowel obstruction. IMPRESSION: Nonspecific fluid-filled loops of small bowel, that may represent an ileus or enteritis. Reviewed, Interpreted and Dictated by Angelito Rice III, MD Transcribed by Florence Cortes Authenticated and [facility]
[2024-09-23] MEDS: SODIUM CHLORIDE 0.9% 10ML SYR (RAD ONLY) 10 ML IV (08:57)
[2024-09-23] MEDS: IOPAMIDOL-370 (76%);100ML BOTTLE 75 ML IV (08:57)
== END 2024-09-23 23:59 | disposition home or self-care (01) ==
LOC: RAD 08:33
PROVIDERS: PCP Nurse Practitioner Family; Visit Provider Nurse Practitioner Family
DX: R10.31 Right lower quadrant pain (principal)
CPT/HCPCS: 74177; Q9967

== ENCOUNTER 2024-10-23 17:36 | Emergency (ER) | payer BC, SELFPAY ==
[2024-10-23 18:15] VITALS: BP 130/84; PULSE 80; RESP 16; TEMP 36.9; O2SAT 98; BMI 28.5
--- NOTE | 2024-10-23 18:32 | ED_ITS ---
Discharge Plan Disposition Patient Disposition: Home, Self-Care Condition: Good Prescriptions Prescriptions: New qshfevrpthqswmt-cirlglyjh-IG [Bromfed DM] 2-30-10 mg/5 mL syrup 10 ml PO Q6H PRN (Reason: cold symptoms) Qty: 125 0RF No Action norethindrone-ethin estradiol 0.4-35 mg-mcg Tablet 1 tab PO DAILY Referrals Follow up/Referrals: Mai Russell APRN [Primary Care Provider] - See instructions Activity Restrictions/Add. Instructions Additional Instructions/Restrictions: *Monitor Temp, Over the counter Motrin or Tylenol as directed/as needed Tylenol every 4 hours and Motrin every 6 hours (as long as your family doctor has told you that you can take it) for fever or pain. and straight to ER if unable to lower temp less than 101.0 after medication given *Warm salt water gargles may help to soothe the throat *Throat Lozenges? *Warm fluids like tea with honey may help to soothe the throat? *Sleep elevated *Humidifier/Vaporizer *Bromfed may cause drowsiness. Know how it effects you (your child) before driving, caring for small child, or sending your child to school. Not other antihistamines/allergy medications while taking bromfed Your throat swab was sent for culture. Those results are typically sent to your primary care. Be sure to follow up in 2-3 days with your family doctor/[facility] physician if no improvement so they can review those result and treat if necessary. If you don?t have a primary care doctor, I recommend you get one but in the mean time, you will have to return to a walk in clinic Follow up IMMEDIATELY for new or worsening symptoms or no Noticeable improvement over the next 48-72 hours. 911 for difficulty breathing or swallowing Clinical Impressions Clinical Impression: Viral upper respiratory tract infection with cough Instructions Patient Instructions: Cough, Sore Throat Print Language Print Language: Icelandic Discharge ED Provider: Emily Hercules [facility] [place] General Stated complaint: sore throat,fever Mode of Arrival: Ambulatory Source of Information: Patient Limitations: No Limitations Time Seen by Provider: 10/23/24 18:32 Description of Symptoms (Recalled from Triage Doc. by RN): PATIENT C/O SORE THROAT X 2 DAYS HEENT Symptoms (Recalled from RN notes): Yes Resp Symptoms (Recalled from RN notes): No Skin Symptoms (Recalled from RN notes): No MS Symptoms (Recalled from RN notes): No Functional Status (Recalled from RN notes): WNL History of Present Illness Provider Complaint: Patient states that strep throat is going around at the day care and for the last couple of days she has been having sore throat so she came in to get checked worried she may have strep throat Related Data Home Medications ?Medication ?Instructions ?Recorded ?Confirmed norethindrone 0.4 mg-ethinyl 1 tab PO DAILY 09/07/24 10/23/24 estradiol 35 mcg tablet Previous Rx's ?Medication ?Instructions ?Recorded xlwsdyimzuqusxb-binggzvmywmgyhs-ML 10 ml PO Q6H PRN cold symptoms 10/23/24 2 mg-30 mg-10 mg/5 mL oral syrup #125 mL (Bromfed DM) Allergies Allergy/AdvReac Type Severity Reaction Status Date / Time No Known Allergies Allergy Verified 09/30/24 15:14 Worker's Comp Is this a Worker's Comp case?: No [facility] Disclaimer: The information contained in this section may have been updated after the patient was seen, as this information can be updated by other users. Medical History (Updated 10/23/24 @ 18:39 by Emily Hercules APRN) Dyspnea on exertion Qrgoe-2-eldtckfkclyagrub deficiency PCOS (polycystic ovarian syndrome) Irregular periods/menstrual cycles Anxiety Surgical History History of laparoscopic cholecystectomy Social History Smoking Status: Never smoker second hand exposure: No alcohol intake: never substance use type: denies use current occupational status: student Travel in the last 8 weeks: None household members: family housing: house lives independently: No marital status: single education level: high school current occupational exposures/hazards: No caffeine: No do you feel safe at home: Yes victim of physical abuse: No victim of emotional abuse: No victim of sexual abuse: No would you like helpful sources: No Have you lived/traveled outside US in past 30 days?: No Contact w/someone who lives/traveled outside US past 30 days?: No Exposure to someone with infectious disease in past 14 days?: No Do you have a fever (greater than 100.4 F or 38 C)?: No Have you tested positive for COVID-19: No Exposed to someone with COVID-19 in past 14 days?: No Do you have a sore throat?: Yes Do you have a cough?: No Do you have any weakness?: No Do you have any diarrhea?: No Are you experiencing any unusual bleeding?: No Do you have any muscle aches/pain?: No Do you have any abdominal pain?: No Are you experiencing loss of taste or smell?: No ROS Obtained: Yes All systems reviewed & no additional complaints except as documented and Yes Systems reviewed as appropriate & no additional complaints except as documented Constitutional Constitutional: Reports system reviewed and no additional complaints, except as documented and Reports as per HPI ENT Ears, Nose, Mouth, and Throat: Reports system reviewed and no additional complaints, except as documented, Reports as per HPI and Reports sore throat Cardiovascular Cardiovascular: Reports system reviewed and no additional complaints, except as documented and Reports as per HPI Respiratory Respiratory: Reports system reviewed and no additional complaints, except as documented and Reports as per HPI Gastrointestinal Gastrointestingal: Reports system reviewed and no additional complaints, except as documented and as per HPI Genitourinary Female Genitourinary: Reports system reviewed and no additional complaints, except as documented and Reports as per HPI Physical Exam General General appearance: alert and in no apparent distress ENT ENT exam: Present mucous membranes moist Expanded ENT Exam Nose exam: Absent sinus tenderness Throat exam: Present tonsillar erythema Respiratory Respiratory exam: Present normal lung sounds bilaterally; Absent respiratory distress or wheezes Cardiovascular Cardiovascular exam: Present regular rate, normal rhythm and normal heart sounds Neurological Exam Neurological exam: Present alert, oriented X3 and normal gait Medical Decision Making Medical Records Screening: Per USPSTF and CDC recommendations, given the prevalence of disease in our region, it is our hospital?s policy to screen for HIV and viral Hepatitis for all patients aged 18 and over and those with ongoing risk factors. [place] Inquiry Pt receiving controlled substance: No [place] was queried for this patient: No Vital Signs: 10/23/24 18:15 Temperature 98.4 F Temperature Source Oral Pulse Rate [Left Brachial] 80 Respiratory Rate 16 Blood Pressure [Left Arm] 130/84 Blood Pressure Mean [Left Arm] 99 Blood Pressure Source [Left Arm] Automatic Cuff Blood Pressure Position [Left Arm] Sitting 02 Sat by Pulse Oximetry 98 Oxygen Delivery Method Room Air Lab Data Lab results reviewed: Yes I reviewed the patient's lab results.
[2024-10-23 18:36] LABS: UTC Strep Screen (Rapid) Negative (Negative)
[2024-10-23 18:38] VITALS: BP 130/84; PULSE 80; RESP 16; TEMP 36.9; O2SAT 98
== END 2024-10-23 18:40 | disposition home or self-care (01) ==
PROVIDERS: Emergency Provider Nurse Practitioner; PCP Nurse Practitioner Family
DX: J06.9 Acute upper respiratory infection, unspecified (principal); R50.9 Fever, unspecified; R05.9 Cough, unspecified; J02.9 Acute pharyngitis, unspecified
CPT/HCPCS: 87880; 99212; G0381

== ENCOUNTER 2024-10-24 13:41 | Outpatient (CLI) | payer BC, SELFPAY ==
--- NOTE | 2024-10-24 13:42 | CT_ITS ---
FINAL REPORT TECHNIQUE: Axial imaging of the chest was obtained without contrast. High-resolution sequences were also obtained. Reformatted images were also obtained and reviewed.This study was performed with techniques to keep radiation doses as low as reasonably achievable, (ALARA). Individualized dose reduction technique using automated exposure control or adjustment of mA and/or kV according to the patient's size were employed. CLINICAL HISTORY: SOA AND NODULE FINDINGS: There is no axillary adenopathy. There is no hilar or mediastinal mass or adenopathy. Heart size is normal. There is no pericardial or pleural effusion. Limited images of the upper abdomen are demonstrate postoperative changes of cholecystectomy. There are several calcified granulomas in the right lower lobe. There is a 3 mm right middle lobe nodule seen on series 2 image 34. IMPRESSION: 3 mm right middle lobe nodule, likely benign. Reviewed, Interpreted and Dictated by Angelito Rice III, MD Transcribed by Nazanin Lemon Authenticated and [facility]
[2024-10-24] MEDS: ALBUTEROL 0.083% 2.5 MG/3 ML NEB IH (14:31)
--- NOTE | 2024-10-24 14:31 | PC.NURSE ---
PFT and 6 Minute Walk completed without incident. Albuterol 0.083% given via HHN, per written protocol, Pt tolerated tx well.
== END 2024-10-24 23:59 | disposition home or self-care (01) ==
LOC: RAD 13:42
PROVIDERS: PCP Nurse Practitioner Family; Visit Provider Internal Medicine Pulmonary Disease
DX: J84.9 Interstitial pulmonary disease, unspecified (principal); R06.09 Other forms of dyspnea
CPT/HCPCS: 71250; 94060; 94618; 94726; 94729; J7613

== ENCOUNTER 2024-12-23 18:15 | Outpatient (CLI) | payer BC, SELFPAY ==
--- NOTE | 2024-12-23 18:23 | XR_ITS ---
PROCEDURE INFORMATION: Exam: XR Chest Exam date and time: 12/23/2024 6:24 PM Age: 19 years old Clinical indication: Cough TECHNIQUE: Imaging protocol: Radiologic exam of the chest. Views: 2 views. COMPARISON: CT HIGH RESOLUTION CHEST 10/24/2024 1:50 PM FINDINGS: Lungs: Unremarkable. No consolidation. Pleural spaces: Unremarkable. No pleural effusion. No pneumothorax. Heart/Mediastinum: Unremarkable. No cardiomegaly. Bones/joints: Unremarkable. IMPRESSION: No acute findings.
[2024-12-24 09:00] LABS: Coronavirus 19, PCR Not Detected (NotDetected); Human Rhinovirus Not Detected (NotDetected); Influenza A, PCR Not Detected (NotDetected); Influenza B, PCR Not Detected (NotDetected); Respiratory Syncytial Virus Not Detected (NotDetected)
== END 2024-12-23 23:59 | disposition home or self-care (01) ==
LOC: RAD 18:17
PROVIDERS: PCP Internal Medicine Adolescent Medicine; Visit Provider Student in an Organized Health Care Education/Training Program
DX: R05.9 Cough, unspecified (principal)
CPT/HCPCS: 71046; 87631

== ENCOUNTER 2025-01-18 09:56 | Emergency (ER) | payer BC, SELFPAY ==
[2025-01-18 10:05] VITALS: BP 117/69; PULSE 91; RESP 16; TEMP 36.9; O2SAT 99; BMI 25.0
--- NOTE | 2025-01-18 10:10 | XR_ITS ---
PROCEDURE INFORMATION: Exam: XR Chest Exam date and time: 01/18/2025 10:05 AM Age: 19 years old Clinical indication: Shortness of breath and other: Pressure; Additional info: lung pressure TECHNIQUE: Imaging protocol: Radiologic exam of the chest. Views: 2 views. COMPARISON: CR XR CHEST 2V 12/23/2024 6:24 PM FINDINGS: Lungs: Unremarkable. No consolidation. Pleural spaces: Unremarkable. No pleural effusion. No pneumothorax. Heart/Mediastinum: Unremarkable. No cardiomegaly. Bones/joints: Unremarkable. IMPRESSION: No acute findings.
--- NOTE | 2025-01-18 12:16 | ECG_ITS ---
APPROVED REPORT Exam: Resting ECG HR:81 bpm ECG Measurements Heart Rate 81 AXES NC 175 P 62 QRSd 104 QRS 81 QT 350 T 61 QTc 387 Conclusion SINUS RHYTHM POSSIBLE RIGHT VENTRICULAR CONDUCTION DELAY [RSR (QR) IN V1/V2] Benign early repolarization. No STEMI. Electronically signed by : MADELYN MCKENNA, 01/18/2025 15:03:13
[2025-01-18] MEDS: LACTATED RINGERS 1000ML 1,000 ML 999 ML IV (12:17)
--- NOTE | 2025-01-18 12:32 | HMH.EDCP ---
Discharge Plan Disposition Patient Disposition: Left Against Medical Advice Chief Complaint: Shortness of Breath/Dyspnea Prescriptions Prescriptions: No Action norethindrone-e.estradiol-iron 1 mg-20 mcg (21)/75 mg (7) tablet 1 tab PO DAILY ondansetron 4 mg tablet,disintegrating 4 mg PO Q8H PRN (Reason: nausea and vomiting) Qty: 14 0RF azithromycin [Zithromax Z-Adriano] 250 mg tablet See Rx Instructions PO .COMPLEX Qty: 6 0RF Rx Instructions: For 250 mg dose pack: take 500 mg today (day 1), then 250 mg for 4 days (days 2-5) PO methylprednisolone 4 mg tablets,dose pack See Rx Instructions PO PER PKG DIR Qty: 21 0RF Rx Instructions: PO PER PKG DIR Referrals Follow up/Referrals: Jhony Rosa MD [Primary Care Provider] - See instructions Clinical Impressions Clinical Impression: Acute chest wall pain Print Language Print Language: Wolof Discharge ED Provider: Laurie Harrell [facility] General Chief Complaint: Shortness of Breath/Dyspnea Stated Complaint: soa pressure in right lung Time Seen by Provider: 01/18/25 11:48 Mode of Arrival: Ambulatory Source of Information: Patient Description of Symptoms (Recalled from ER Triage Doc. by RN): Patient presents ambulatory to [facility] with her mother. Patient reports this morning she had really bad acid reflux. States now, My right lung hurts when I breath. States it feels like a pressure on her lung. Mother reports the patient has a diagnosis of Alpha-1 Antitrypsin Deficiency. History of Present Illness HPI narrative: This patient is a 19-year-old female with a history of alpha-1 antitrypsin deficiency, PCOS on hormonal control presenting to the emergency department for evaluation with concern for shortness of breath and my right lung hurts when I breathe. She notes that she has had back really bad acid reflux for couple days now and has been up vomiting since 4:00 AM. She states it feels like she is an empty pit in her stomach. She also rode in a car for a long time yesterday. Now she is having pain in her right posterior ribs that is worse when she takes a deep breath. She still feels nauseated and is still having some acid reflux but that part little bit better now. She is requesting inhaler for shortness of breath. No other concerns noted at this time. Related Data Home Medications ?Medication ?Instructions ?Recorded ?Confirmed norethindrone 1 mg-ethinyl 1 tab PO DAILY 10/28/24 12/23/24 estradiol 20 mcg (21)-iron 75 mg (7) tablet Previous Rx's ?Medication ?Instructions ?Recorded azithromycin 250 mg tablet See Rx Instructions PO .COMPLEX #6 12/23/24 (Zithromax Z-Adriano) tabs methylprednisolone 4 mg tablets in See Rx Instructions PO PER PKG DIR 12/23/24 a dose pack #21 tabs ondansetron 4 mg disintegrating 4 mg PO Q8H PRN nausea and 12/23/24 tablet vomiting #14 tabs Allergies Allergy/AdvReac Type Severity Reaction Status Date / Time No Known Allergies Allergy Verified 12/23/24 17:37 [facility] Disclaimer: The information contained in this section may have been updated after the patient was seen, as this information can be updated by other users. Medical History Dyspnea on exertion Wlmwz-7-dwwrrwitzipmxtdu deficiency PCOS (polycystic ovarian syndrome) Irregular periods/menstrual cycles Anxiety Surgical History History of laparoscopic cholecystectomy Social History Smoking Status: Never smoker second hand exposure: No alcohol intake: never substance use type: denies use current occupational status: student Travel in the last 8 weeks: None household members: family housing: house lives independently: No marital status: single education level: high school current occupational exposures/hazards: No caffeine: No do you feel safe at home: Yes victim of physical abuse: No victim of emotional abuse: No victim of sexual abuse: No would you like helpful sources: No Have you lived/traveled outside US in past 30 days?: No Contact w/someone who lives/traveled outside US past 30 days?: No Exposure to someone with infectious disease in past 14 days?: No Do you have a fever (greater than 100.4 F or 38 C)?: No Have you tested positive for COVID-19: No Exposed to someone with COVID-19 in past 14 days?: No Do you have a sore throat?: No Do you have a cough?: No Do you have any weakness?: No Do you have any diarrhea?: No Are you experiencing any unusual bleeding?: No Do you have any muscle aches/pain?: No Do you have any abdominal pain?: No Are you experiencing loss of taste or smell?: No Other Medical History Have you received the Flu Vaccine for this season: No Have you received the Pneumonia Vaccine: No ROS Obtained: Yes All systems reviewed & no additional complaints except as documented Physical Exam General General appearance: alert and in no apparent distress Head Head exam: atraumatic and normocephalic Eye Eye exam: Present normal appearance, PERRL and EOMI ENT ENT exam: Present normal exam, normal oropharynx, mucous membranes moist and normal external ear exam Neck Neck exam: Present normal inspection, full ROM and trachea midline; Absent tenderness Chest Chest inspection: Present symmetric chest wall rise and tenderness (Posterior ribs) Respiratory Respiratory exam: Present normal lung sounds bilaterally; Absent respiratory distress, wheezes, stridor or accessory muscle use Cardiovascular Cardiovascular exam: Present regular rate and normal rhythm Abdominal Exam Abdominal exam: Present soft; Absent distention, tenderness or guarding Extremities Exam Extremities exam: Present normal inspection, full ROM and normal capillary refill; Absent tenderness or edema Back Exam Back exam: Present normal inspection and full ROM; Absent tenderness Neurological Exam Neurological exam: Present alert, oriented X3, CN II-XII intact and normal gait; Absent motor sensory deficit Psychiatric Psychiatric exam: Present normal affect and normal mood Skin Skin exam: Present warm and dry HEART Score HEART Score HEART Score assessment performed?: No Critical Care Critical Care Time Critical Care Time: No Medical Decision Making [place] Inquiry Pt receiving controlled substance: No Vital Signs Vital Signs: 01/18/25 10:05 Temperature 98.5 F Temperature Source Oral Pulse Rate [Radial] 91 H Respiratory Rate 16 Blood Pressure [R Arm] 117/69 Blood Pressure Mean [R Arm] 85 Blood Pressure Source [R Arm] Automatic Cuff Blood Pressure Position [R Arm] Sitting 02 Sat by Pulse Oximetry 99 Oxygen Delivery Method Room Air Response Orders (Tests/Meds): ED MEDICATIONS Generic Name Dose Route Start Last Admin Trade Name Freq PRN Reason Stop Dose Admin Lactated Ringer's 1,000 mls @ 999 mls/hr 01/18/25 12:02 01/18/25 12:17 Lactated Ringer's 1000 Ml Bag IV 01/18/25 13:02 999 mls/hr .Q1H1M ONE Administration Sodium Chloride 10 ml 01/18/25 12:00 Sodium Chloride 0.9% 10ml Vial IV 02/17/25 11:59 NEEDED PRN dilute protonix Discontinued Medications Generic Name Dose Route Start Last Admin Trade Name Freq PRN Reason Stop Dose Admin Acetaminophen 1,000 mg 01/18/25 12:00 01/18/25 12:22 Acetaminophen 1,000mg/100ml Vial IV 01/18/25 12:01 1,000 mg ONCE ONE Administration Belladonna Alkaloids 60 ml 01/18/25 12:00 Belladonna Alkaloids 60 Ml Ml PO 01/18/25 12:01 ONCE ONE Ketorolac Tromethamine 15 mg 01/18/25 12:00 Ketorolac 30mg/Ml Vial IV 01/18/25 12:01 ONCE ONE Ondansetron HCl 4 mg 01/18/25 12:00 01/18/25 12:22 Ondansetron 4mg/2ml Vial IV 01/18/25 12:01 4 mg ONCE ONE Administration Pantoprazole Sodium 40 mg 01/18/25 12:00 01/18/25 12:22 Pantoprazole 40mg Vial IV 01/18/25 12:01 40 mg ONCE ONE Administration ORDERS Category Date Time Status Chest XR 2 view (NOT portable) [XR chest 2V] Stat Exams 01/18/25 10:10 Completed CBC w/Auto Diff [Complete Blood Count Auto Diff] Stat Lab 01/18/25 12:08 Received CMP [Comprehensive Metabolic Panel] Stat Lab 01/18/25 12:08 Received D-Dimer Stat Lab 01/18/25 12:08 Received Lipase Stat Lab 01/18/25 12:08 Received Rapid PCR Covid and Flu A/B Stat Lab 01/18/25 12:00 Ordered UA [Urinalysis and Microscopic] Stat Lab 01/18/25 12:00 Ordered Urine , HCG Qual. Stat Lab 01/18/25 12:00 Ordered ECG Data Tracing #1: Attestation: I reviewed this ECG and interpreted as documented below: ECG Narrative: Normal sinus rhythm with a ventricular rate of 81 bpm. Right ventricular conduction delay. No acute ST changes concerning for ischemia. ECG initial impression date: 01/18/25 ECG initial impression time: 12:18 MDM Narrative Medical Decision Narrative: In summary, this patient is a 19-year-old female presenting to the Emergency Department for evaluation of right posterior rib pain when she takes deep breath, severe acid reflux, nausea, and vomiting. Differential diagnoses considered include but are not limited to musculoskeletal strain/sprain, PE, pneumonia, pleurisy, viral syndrome, gastritis, esophagitis. Ruling out the most morbid conditions drove assessment. It should be noted patient's history includes alpha-1 antitrypsin deficiency and PCOS on hormonal control which may or may not be at goal therapy. This complicates all aspects of care by increasing patient's risk for morbidity. On exam, patient has reproducible tenderness to palpation of the right posterior ribs where she is having the pain. Is likely musculoskeletal, but cannot use PERC criteria to exclude PE as a cause of pleuritic pain given she is on control. Vitals and exam are otherwise reassuring. Lungs are clear. Workup included CBC, CMP, D-dimer, lipase, urinalysis, test, chest x-ray, EKG. I independently interpreted chest x-ray prior to the radiologist read and noted no large focal consolidation concerning for pneumonia, no pneumothorax. Please see their read for final interpretation. EKG obtained is reassuring. Patient elected to leave [place] prior to obtaining labs because she did not want to wait for lab evaluation. She was given IV Toradol, Tylenol, GI cocktail prior to leaving with improvement in symptoms. Patient was discharged with strict return precautions
[2025-01-18 12:34] LABS: Basophils % 0.2 % (0.1-2.0); Hematocrit 43.1 % (37.0-47.0); Hemoglobin 14.6 g/dL (12.2-16.2); Lymphocytes # 1.3 K/mm3 (0.7-4.5); Mean Corpuscular HGB Conc 33.9 g/dL (31.8-35.4); Mean Corpuscular Hemoglobin 27.6 pg (27.0-31.2); Mean Corpuscular Volume 81.5 fl (81-99); Mean Platelet Volume 9.8 fl (7.4-10.4); Monocytes # 0.4 K/mm3 (0.1-1.0); Monocytes % 3.5 % (1.7-9.3); Neutrophils % 83.9 % (37.0-80.0); Platelet Count 366 K/mm3 (142-424); Red Blood Count 5.29 M/mm3 (4.20-5.40); Red Cell Distribution Width 12.5 % (11.5-17.5); White Blood Count 10.8 K/mm3 (4.8-10.8)
--- NOTE | 2025-01-18 12:36 | PC.NURSE ---
RN went in to patient room to administered medications and patient stated so dont be mad at me but can i just go home? i havent thrown up since 929 and feel fine. RN stated that patient was free to do what she wanted and that all was needed to leave was to sign a AMA form. patient signed ama form, iv was removed adn she went home with her mom. pt alert and oriented and ER MD and charge nurse made aware
[2025-01-18 12:40] VITALS: BP 128/79; PULSE 95; RESP 20; TEMP 36.8; O2SAT 99
[2025-01-18 12:41] LABS: Alanine Aminotransferase 29 U/L (12-78); Albumin Level 5.4 g/dl (3.5-5.0); Albumin/Globulin Ratio 1.7 (1.1-1.8); Alkaline Phosphatase 90 U/L (38-126); Anion Gap 13.7 mEq/L (5-15); Aspartate Amino Transferase 37 U/L (14-36); Bilirubin,Total 2.3 mg/dl (0.2-1.3); Blood Urea Nitrogen 7 mg/dl (7-17); Calcium 10.1 mg/dl (8.4-10.2); Carbon Dioxide 24 mmol/L (22.0-30.0); Chloride 106 mmol/L (98-107); Creatinine Clearance Estimated 119 mL/min (50-200); Estimated Glomerular Filt Rate 91 ml/min (>60); GFR (African American) 110 ML/MIN (>60); Globulin 3.2 g/dL (1.3-3.2); Glucose 106 mg/dl (74-100); Lipase 51 U/L (23-300); Potassium 3.7 mmoL/L (3.5-5.1); Sodium 140 mmol/L (136-145); Total Protein,Serum 8.6 g/dl (6.3-8.2)
[2025-01-18 12:47] LABS: Coronavirus 19, PCR Not Detected (NotDetected); Influenza A, PCR Not Detected (NotDetected); Influenza B, PCR Not Detected (NotDetected)
== END 2025-01-18 12:44 | disposition left against medical advice (07) ==
PROVIDERS: Emergency Provider Emergency Medicine; PCP Internal Medicine Adolescent Medicine
DX: R07.89 Other chest pain (principal); R06.02 Shortness of breath; R11.2 Nausea with vomiting, unspecified; R07.81 Pleurodynia; K21.9 Gastro-esophageal reflux disease without esophagitis
CPT/HCPCS: 71046; 80053; 83690; 85025; 85378; 87636; 93005; 96360; 99283; J0131; J2405; J7120

== ENCOUNTER 2025-01-27 07:55 | Outpatient (CLI) | payer BC, SELFPAY ==
--- NOTE | 2025-01-27 07:58 | CA_ITS ---
APPROVED REPORT EXAM: Comprehensive 2D, Doppler, and color-flow Echocardiogram Perpetual Inventory Clerk: Carmen Thornton RDCS Ht: 5 ft 5 in Wt: 154lbs BSA: 1.77 BP: 119/72 mmHg Indications: ABN EKG,SOA M-Mode Dimensions RVDd 2.19 cm (0.9-2.6) LA Diam 3.12 cm (1.9-4.0) LVDd 4.63 cm (3.5-5.7) LVDs 3.70 cm (3.5-5.7) IVSd 0.52 cm (0.6-1.1) PWd 0.52 cm (0.6-1.1) EF (Teich) 41.20% FS 20.10% EDV (Teich) 98.80 mL TAPSE 1.79 (<1.7) ESV (Teich) 58.10 mL LV Diastology E Decel Time 137 (160-240 msec) E/A Ratio 1.3 Mitral Valve MV E Max Sushil. 66.0 (40-130 cm/s) MV A Velocity 49.0 (40-130 cm/s) E/A Ratio 1.35 MV PHT 40.0 ms Left Ventricle The left ventricle is normal size. The left ventricular systolic function is normal. The left ventricular ejection fraction is within the normal range. There is normal left ventricular wall thickness. There is normal LV segmental wall motion. The left ventricular diastolic function is normal. LVEF is 55%. Right Ventricle The right ventricle is normal size. The right ventricular systolic function is normal. Atria The left atrium size is normal. The right atrium size is normal. The interatrial septum is not well-visualized. Aortic Valve The aortic valve opens well. There is no aortic valvular stenosis. No aortic regurgitation is present. Mitral Valve The mitral valve is normal in structure. No evidence of mitral valve stenosis. There is no mitral valve regurgitation noted. Tricuspid Valve Tricuspid valve is grossly normal in structure and function. Trace tricuspid regurgitation. There is insufficient TR jet to estimate RVSP. Pulmonic Valve The pulmonary valve is normal in structure. Mild pulmonic regurgitation. Great Vessels The aortic root is normal in size. IVC is normal in size and collapses >50% with inspiration. Pericardium There is no pericardial effusion. Other Information Study Quality: Adequate Conclusion Normal biventricular systolic function. Mild PI. Electronically signed by : Shanthi Mack MD 02/02/2025 13:29:59
== END 2025-01-27 23:59 | disposition home or self-care (01) ==
LOC: RT 07:56
PROVIDERS: PCP Internal Medicine Adolescent Medicine; Visit Provider Internal Medicine Adolescent Medicine
DX: I37.1 Nonrheumatic pulmonary valve insufficiency (principal); R94.31 Abnormal electrocardiogram [ECG] [EKG]; R06.02 Shortness of breath
CPT/HCPCS: 93306